=== PATIENT | female | born 1940 | race Caucasian/White ===

== ENCOUNTER 2020-03-23 13:26 | Outpatient (CLI) | payer OTHER, MEDICARE, SELFPAY ==
--- NOTE | 2020-03-23 13:51 | XR_ITS ---
WS: [id number] XR ankle RT 2V [id number] REASON FOR EXAM: RIGHT ANKLE PAIN FINDINGS: Spiral three-part fracture of the distal fibula at the level of the syndesmosis between the fibula an d tibia. There is no significant displacement of fracture fragments and no significant angulation see n on the lateral. The ankle mortise is preserved. No other significant abnormalities are identified. XR/XR ankle RT 2V 80112 IMPRESSION: Fracture of the distal right fibula as above.
== END 2020-03-23 13:27 | disposition home or self-care (01) ==
LOC: RAD 13:49
PROVIDERS: PCP Family Medicine; Visit Provider Family Medicine
DX: S82.831A Other fracture of upper and lower end of right fibula, initial encounter for closed fracture (principal); X58.XXXA Exposure to other specified factors, initial encounter
CPT/HCPCS: 73600

== ENCOUNTER → 2021-10-28 16:47 | Outpatient (BNVA) | payer OTHER, MEDICARE, SELFPAY | PROVIDERS: Visit Provider Clinical Nurse Specialist Adult Health | DX: E06.3 Autoimmune thyroiditis (principal) | CPT/HCPCS: 84443 ==

== ENCOUNTER → 2021-11-11 16:31 | Outpatient (BNVA) | payer OTHER, MEDICARE, SELFPAY | PROVIDERS: Visit Provider Clinical Nurse Specialist Adult Health | DX: E06.3 Autoimmune thyroiditis (principal) | CPT/HCPCS: 84439; 84480; 84481 ==

== ENCOUNTER → 2022-02-24 09:49 | Outpatient (BNVA) | payer OTHER, MEDICARE, SELFPAY | PROVIDERS: PCP Family Medicine; Visit Provider Family Medicine | DX: E03.9 Hypothyroidism, unspecified (principal); L50.9 Urticaria, unspecified | CPT/HCPCS: 80053; 84439; 84443; 84481; 85025; 86140 ==

== ENCOUNTER → 2022-06-27 14:48 | Outpatient (BNVA) | payer OTHER, MEDICARE, SELFPAY | PROVIDERS: PCP Family Medicine; Visit Provider Family Medicine | DX: Z51.81 Encounter for therapeutic drug level monitoring (principal); Z79.01 Long term (current) use of anticoagulants | CPT/HCPCS: 80048; 80076; 85025 ==

== ENCOUNTER → 2022-08-04 16:05 | Outpatient (BNVA) | payer OTHER, MEDICARE, SELFPAY | PROVIDERS: PCP Family Medicine; Visit Provider Family Medicine | DX: Z51.81 Encounter for therapeutic drug level monitoring (principal); E03.9 Hypothyroidism, unspecified | CPT/HCPCS: 80048; 80076; 80158; 85025 ==

== ENCOUNTER → 2022-09-06 15:56 | Outpatient (BNVA) | payer OTHER, MEDICARE, SELFPAY | PROVIDERS: PCP Family Medicine; Visit Provider Family Medicine | DX: E03.9 Hypothyroidism, unspecified (principal); Z51.81 Encounter for therapeutic drug level monitoring; Z79.899 Other long term (current) drug therapy | CPT/HCPCS: 80048; 80076; 80158; 84439; 84443; 84481; 85018; 85025 ==

== ENCOUNTER → 2022-10-04 15:49 | Outpatient (BNVA) | payer OTHER, MEDICARE, SELFPAY | PROVIDERS: PCP Family Medicine; Visit Provider Family Medicine | DX: Z91.018 Allergy to other foods (principal); E03.9 Hypothyroidism, unspecified | CPT/HCPCS: 80048; 80076; 80158; 85025; 86003; 86008 ==

== ENCOUNTER → 2022-11-08 15:45 | Outpatient (BNVA) | payer OTHER, MEDICARE, SELFPAY | PROVIDERS: PCP Family Medicine; Visit Provider Family Medicine | DX: Z51.81 Encounter for therapeutic drug level monitoring (principal) | CPT/HCPCS: 80158 ==

== ENCOUNTER → 2023-01-05 15:19 | Outpatient (BNVA) | payer OTHER, MEDICARE, SELFPAY | PROVIDERS: PCP Family Medicine; Visit Provider Family Medicine | DX: Z91.018 Allergy to other foods (principal) | CPT/HCPCS: 86003 ==

== ENCOUNTER 2023-03-16 13:30 | Outpatient (CLI) | payer OTHER, MEDICARE, SELFPAY ==
--- NOTE | 2023-03-16 13:45 | USCV_ITS ---
Tamera Valdovinos Age: 82 Gender: F : 1940 Exam Date: 03/16/2023 13:53 Ordering Phys: Naresh Gallego MD Technologist: BHAVANA Exam Location: [facility] [place] Indication: cva BP: / HR: 79 Rhythm: Sinus Technical Quality: Good MEASUREMENTS (Male / Female) Normal Values 2D ECHO LV Diastolic Diameter PLAX 4.2 cm 4.2 - 5.9 / 3.9 - 5.3 cm LV Systolic Diameter PLAX 2.9 cm IVS Diastolic Thickness 1.1 cm 0.6 - 1.0 / 0.6 - 0.9 cm IVS Systolic Thickness 1.0 cm LVPW Diastolic Thickness 0.9 cm 0.6 - 1.0 / 0.6 - 0.9 cm LVPW Systolic Thickness 1.4 cm LVOT Diameter 2.0 cm LV Ejection Fraction 2D Teich 59.2 % LV Ejection Fraction MOD 2C 48.7 % LV Ejection Fraction 2C AL 50.3 % LA Diameter 3.3 cm LA Width 2.8 cm LA Height 5.2 cm RA Width 2.7 cm RA Height 4.7 cm Aorta at Sinotubular Diameter 2.7 cm IVC Diameter 1.6 cm M-MODE Aortic Annulus Diameter 2.2 cm LA Ao Ratio MM 1.5 MV E Point Septal Separation 0.7 cm DOPPLER AV Peak Velocity 97.0 cm/s LVOT Peak Velocity 99.0 cm/s AV Area Cont Eq vti 2.9 cm squared AV Area Cont Eq pk 3.3 cm squared MV Peak Velocity 104.0 cm/s MV Area PHT 3.7 cm squared Mitral E to A Ratio 1.2 MV E' Velocity 49.5 cm/s Mitral E to MV E' Ratio 10.6 Mitral E to LV E' Lateral Ratio 13.2 Mitral E to LV E' Septal Ratio 8.9 TR Peak Velocity 249.5 cm/s TR Peak Gradient 24.9 mmHg Right Atrial Pressure 5.0 mmHg Pulmonary Artery Systolic Pressu 29.9 mmHg PV Peak Velocity 82.0 cm/s RV Acceleration Time 0.2 s RV Ejection Time 0.4 s RV AcT/ET 0.5 FINDINGS Left Ventricle Normal left ventricular size, systolic function and wall thickness, with no regional wall motion abnormalities. Left ventricular ejection fraction is estimated at 60 %. Grade I/IV diastolic dysfunction (abnormal relaxation filling pattern), normal to mildly elevated filling pressures. Right Ventricle Normal right ventricular size and systolic function. Normal right ventricular systolic pressure. Right Atrium The right atrium is normal in size. Left Atrium The left atrium is normal in size. Mitral Valve Structurally normal mitral valve. Trace mitral valve regurgitation. Aortic Valve Structurally normal trileaflet aortic valve. No aortic valve stenosis. Mild aortic valve regurgitation. Tricuspid Valve Structurally normal tricuspid valve. Mild tricuspid valve regurgitation. Pulmonic Valve Pulmonic valve not well visualized. Mild pulmonary valve regurgitation. Pericardium Normal pericardium without effusion. Aorta Normal ascending aorta dimension. IVC The inferior vena cava appears normal. CONCLUSIONS Normal left ventricular size, systolic function and wall thickness, with no regional wall motion abnormalities. Left ventricular ejection fraction is estimated at 60 %. Grade I/IV diastolic dysfunction (abnormal relaxation filling pattern), normal to mildly elevated filling pressures. Structurally normal mitral valve. Trace mitral valve regurgitation. Structurally normal trileaflet aortic valve. No aortic valve stenosis. Mild aortic valve regurgitation. There are no prior echocardiogram studies to compare. Dr. Osman Cook MD (Electronically Signed) Final Date: 16 March 2023 15:46 S
--- NOTE | 2023-03-16 14:30 | USCV_ITS ---
Tamera Valdovinos Age: 82 Gender: F : 1940 Exam Date: 03/16/2023 14:19 Ordering Phys: Naresh Gallego MD Technologist: LETICIA Exam Location: [facility] [place] Indication: CVA Risk Factors: Previous Vascular Surgery: Right Brachial BP: / Left Brachial BP: / Right Left Velocity (cm/s) Spectral Plaque Velocity (cm/s) Spectral Plaque Syst/Diast Broadening Syst/Diast Broadening 104.50/12.80 Prox CCA 72.90 / 13.70 205.10/37.80 Mid CCA 70.70 / 14.00 56.80/ 13.20 Distal CCA 69.10 / 12.40 51.80/ 14.40 Prox ICA 49.30 / 13.10 71.50/ 16.00 Mid ICA 114.50/ 32.10 74.10/ 19.70 Distal ICA 152.30/ 38.70 60.30 ECA 57.40 0.36 ICA/CCA 2.09 Antegrade Vertebral Antegrade 43.80/ 8.00 cm/s 71.50/ 16.50 cm/s Tri Subclavian Tri 87.80 103.5 0 CONCLUSIONS Right ICA stenosis <50%. Mild atheromatous plaque right carotid bulb/ICA. Left ICA stenosis <50%. Mild atheromatous plaque left carotid bulb/ICA. Intimal thickening in the common carotid arteries and internal carotid arteries bilaterally. Normal antegrade Doppler flow noted in the right vertebral artery. Normal antegrade Doppler flow noted in the left vertebral artery. Mode Thompson MD (Electronically Signed) Final Date: 16 March 2023 16:15 S
--- NOTE | 2023-03-16 15:30 | CT_ITS ---
WS: [id number] CT HEAD TECHNIQUE: Noncontrast CT of the head obtained from the skullbase to the vertex. CLINICAL INFORMATION: cva COMPARISON: None. DLP: 1053.[address] scans at [facility] use at least one of these dose optimization techniques: automated e xposure control; mA and/or kV adjustment per patient size (includes targeted exams where dose is matc hed to clinical indication); or iterative reconstruction. FINDINGS: No evidence of intracranial hemorrhage or mass effect. Ventricular system and basal cisterns are muro nt. Moderate small vessel changes with moderate parenchymal volume loss. No extra-axial fluid collect ions. No evidence of mass or mass effect. Chronic infarcts with encephalomalacia involving the LEFT p arasagittal frontal lobe, LEFT frontal parietal junction, LEFT superior temporal lobe, RIGHT frontal lobe laterally, and RIGHT frontoparietal junction. Tiny chronic lacunar infarct involving the RIGHT c audate. Intracranial vascular calcification. Mastoid air cells are well aerated. Mild mucosal thickening in the ethmoid air cells. Small amount of fluid in the sphenoid sinuses with small calcified osteoma measuring 5 mm. IMPRESSION: 1. No evidence of intracranial hemorrhage or mass effect. 2. Multiple chronic cortical infarcts with encephalomalacia described above involving multiple vascu lar territories some in a watershed distribution. Consider watershed and embolic etiologies. 3. Intracranial vascular calcification. 4. Trace sphenoid sinusitis. Mastoid air cells are well aerated.
== END 2023-03-16 13:31 | disposition home or self-care (01) ==
LOC: RAD 13:30
PROVIDERS: PCP Family Medicine; Visit Provider Family Medicine
DX: Z86.73 Personal history of transient ischemic attack (TIA), and cerebral infarction without residual deficits (principal); R07.9 Chest pain, unspecified; G93.89 Other specified disorders of brain; I65.23 Occlusion and stenosis of bilateral carotid arteries; I51.89 Other ill-defined heart diseases; I34.0 Nonrheumatic mitral (valve) insufficiency; I35.0 Nonrheumatic aortic (valve) stenosis
CPT/HCPCS: 70450; 93306; 93880; Q9967

== ENCOUNTER 2023-08-16 14:17 | Emergency (ER) | payer OTHER, MEDICARE, SELFPAY ==
[2023-08-16 14:23] VITALS: BP 195/81; PULSE 58; TEMP 36.8; O2SAT 99
--- NOTE | 2023-08-16 14:23 | XR_ITS ---
WS: [id number] Exam: XR chest 1V portable [id number] Date/Time of Exam: 08/16/2023 2:23 PM Reason For Exam: cva No priors. Lungs are clear and fully inflated. Cardiomediastinal silhouette is unremarkable. No pleural effusion s. Bony structures are intact. Dextroscoliosis noted at the thoracolumbar junction. IMPRESSION: 1. No acute cardiopulmonary finding.
--- NOTE | 2023-08-16 14:23 | CT_ITS ---
WS: [id number] CTA HEAD AND NECK TECHNIQUE: Contrast enhanced CTA of the head and neck with coronal and sagittal reformatted images an d maximum intensity projection (MIP) images. NASCET criteria utilized. CLINICAL INFORMATION: cva DLP: 403.[address] scans at [facility] use at least one of these dose optimization techniques: automated e xposure control; mA and/or kV adjustment per patient size (includes targeted exams where dose is matc hed to clinical indication); or iterative reconstruction. FINDINGS: Acute appearing occlusion of the distal RIGHT MCA at the trifurcation involving the posterior divisio n branch. Anterior division remains patent. Decreased vascularity to the RIGHT posterior MCA territor y involving the RIGHT temporal lobe and insula. Decreased vascularity involving the posterior tempora l and parietal junction. RIGHT: RIGHT common carotid artery is patent. Mild atheromatous plaque RIGHT carotid bulb. No signifi cant RIGHT ICA stenosis. RIGHT ICA is patent to the skull base. . LEFT: LEFT common carotid artery is patent. No significant LEFT ICA stenosis. LEFT ICA is patent to t he skull base. 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 Absent RIGHT A1 segment. Normal vascularity to the ENOC and LEFT MCA elisa tory. LEFT dominant vertebral artery. Smaller but patent RIGHT vertebral artery ends in PICA. Basilar arter y is patent. Normal vascularity to the OVERLOCK SLEEVE SETTER territory bilaterally IMPRESSION: 1. Acute appearing occlusion posterior division of the RIGHT MCA corresponds to the increased attenu ation seen on the head CT. 2. Associated decreased vascularity to the RIGHT OVERLOCK SLEEVE SETTER territory described above. 3. No significant ICA stenosis bilaterally. 4. LEFT dominant vertebral artery. 5. 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 Basilar artery is patent. 6. Chronic cortical infarcts unchanged compared to previous Notified Cyndi Paz MD at 08/16/2023 3:10 PM.
--- NOTE | 2023-08-16 14:23 | CT_ITS ---
WS: [id number] CT HEAD TECHNIQUE: Noncontrast CT of the head obtained from the skullbase to the vertex. CLINICAL INFORMATION: Symptoms of acute stroke COMPARISON: CT 03/16/2023 DLP: [address] scans at [facility] use at least one of these dose optimization techniques: automated e xposure control; mA and/or kV adjustment per patient size (includes targeted exams where dose is matc hed to clinical indication); or iterative reconstruction. FINDINGS: No evidence of intracranial hemorrhage or mass effect. Increased density in the RIGHT distal MCA AND MCA trifurcation may be due to vascular calcification or thrombus. CTA is pending. Ventricular system and basal cisterns are patent. Moderate small vessel changes with moderate parench ymal volume loss. Chronic cortical infarcts involving the parasagittal LEFT frontal lobe, LEFT inferi or frontal lobe, LEFT temporal lobe and temporoparietal junction, and RIGHT temporoparietal junction. Intracranial vascular calcification. Mastoid air cells are well aerated. Small amount of fluid sphen oid sinus. IMPRESSION: 1. No evidence of intracranial hemorrhage or mass effect. 2. Increased density in the RIGHT distal MCA MCA trifurcation may be due to vascular calcification o r thrombus. CTA is pending. 3. Multiple chronic cortical infarcts unchanged described above. Notified Cyndi Paz MD at 08/16/2023 2:42 PM.
--- NOTE | 2023-08-16 14:28 | ED_ITS ---
HPI - Neuro Symptoms/Deficit 2 General: Chief Complaint: Altered Mental Status Stated Complaint: fall, head lac Time Seen by Provider: 08/16/23 14:19 Source: family Mode of arrival: ambulatory Limitations: altered mental status History of Present Illness: 82-year-old female states that f rajni in the garage hit her head on the floor does have a laceration to left side of her head he states that since she had fell in her head she has been altered. Patient here is gaze to the right we will not follow any commands he states he has been she has been like this over the last hour since her fall states that she is acting normal prior to that she does have a history of a stroke in the past. Review of Systems 2 General: Reports: ROS unobtainable due to mental status PFSH ED 2 PFSH: Medical History CVA (cerebral vascular accident) Chronic back pain Hypertension Urticaria Hypothyroid NIH stroke score 2 NIHSS: Level Of Consciousness - 1a: 1 Level Of Consciousness Questions - 1b: One Correct Level Of Consciousness Commands - 1c: One Correct Best Gaze - 2: Forced Deviation Visual Ann - 3: No Visual Loss Facial Palsy - 4: Normal Motor Arm Right - 5: Effort Against [place] Motor Arm Left - 5: No Drift Motor Leg Right - 6: Effort Against [place] Motor Leg Left - 6: No Drift Limb Ataxia - 7: Absent Sensory - 8: Normal Best Language - 9: Mild/Moderate Aphasia Dysarthia - 10: Mild/Moderate Dysarthia E xtinction And Inattention - 11: 1 Score: Total Score: 12 Physical Exam 2 Const: COMMON NORMALS: negative for patient oriented x3 EXAM LIMITATIONS: a ltered mental status HENMT: COMMON NORMALS: normocephalic HEAD & SCALP: normocephalic OTHER: contusion left forehead with a 2cm laceration Eye: OTHER: She has a deviation to her eyes looking to the right Neck/C-Spine: COMMON NORMALS: full ROM and supple Chest: COMMONS NORMALS: normal inspection of the chest and normal palpation of entire chest wall Resp: COMMON NORMALS: normal respiratory effort, No retractions, No use of accessory muscles and clear to auscultation bilaterally AUSCULTATION: clear to auscultation bilaterally Cardio: COMMON NORMALS: regular rate, regular rhythm and No murmurs present (Cardio) RATE: regular rate RHYTHM: regular rhythm GI: COMMON NORMALS: Normal to inspection, nondistended, normoactive bowel sounds present, Soft to palpation, non-tender and no masses PALPATION: Yes Soft to palpation Extremity: COMMON NORMALS: normal to inspection and full ROM Neuro: COMMON NORMALS: negative for patient oriented x3 and negative for moves all extremities Psych: COMMON NORMALS: negative for mental status grossly normal Skin: COMMON NORMALS: no rashes or lesions noted and no wounds GENERAL SKIN EXAM: no rashes or lesions noted Procedures Laceration Laceration 1: Site: other (left forehead) Side (If applicable): left Size (cm): 2 Description: linear and clean Depth: simple, single layer Pre-repair: irrigated extensively Skin layer closed with: other (dermabond) Course 2 Vital Signs: Vital signs: Vital Signs Temperature 98.3 F 08/16/23 14:23 Pulse Rate 58 L 08/16/23 14:23 Blood Pressure 195/81 08/16/23 14:23 Pulse Oximetry 99 08/16/23 14:23 Oxygen Delivery Me thod Room Air 08/16/23 14:23 MDM - Neuro Symptoms/Deficit Medical Decision Making Patient presents here after a stroke she did hit her head as well her last known normal was 1300. Head CT showed no bleed CTA did show a thrombus. I did consult with our neurologist Dr. Cintron who agreed with me patient is not a lytic candidate due to the head trauma she is got a large contusion along with laceration I did repair the laceration here with Dermabond. I spoke to [facility] neurology will transfer there for higher level care for possible thrombectomy Medical Records I reviewed the patient's medical records. Lab Data I reviewed the patient's lab results. 08/16/23 14:30 08/16/23 14:30 Laboratory Results WBC 3.33 10^3/uL (3.29-11.43) 08/16/23 14:30 RBC 4.05 10^6/uL (3.85-5.65) 08/16/23 14:30 Hgb 10.90 g/dL (11.27-16.99) L 08/16/23 14:30 Hct 34.6 % (36-47) L 08/16/23 14:30 MCV 85.4 fl (85-98) 08/16/23 14:30 MCH 26.9 pg (27-33) L 08/16/23 14:30 MCHC 31.5 g/dL (30-55) 08/16/23 14:30 RDW 14.2 % (12.1-15.1) 08/16/23 14:30 Plt Count 164 10^3/cmm (157-399) 08/16/23 14:30 MPV 10.8 fL (7.4-10.4) H 08/16/23 14:30 Neut % (Auto) 65.2 % 08/16/23 14:30 Lymph % (Auto) 24.3 % 08/16/23 14:30 [place] % (Auto) 8.4 % 08/16/23 14:30 Eos % (Auto) 1.2 % 08/16/23 14:30 Baso % (Auto) 0.0 % 08/16/23 14:30 Neut # (Auto) 2.17 10^3/uL (1.8-7.7) 08/16/23 14:30 Lymph # (Auto) 0.8 10^3/uL (0.8-4.8) 08/16/23 14:30 [place] # (Auto) 0.3 10^3/uL (0.2-0.9) 08/16/23 14:30 Eos # (Auto) 0.0 10^3/uL (0.0-0.8) 08/16/23 14:30 Baso # (Auto) 0.0 10^3/uL (0.0-0.1) 08/16/23 14:30 Nucleated RBC % (auto) 0 % 08/16/23 14:30 Nucleated RBCs # 0.0 /100WBC 08/16/23 14:30 PT 14.50 SECONDS (12.1-14.9) 08/16/23 14:30 INR 1.10 (0.8-1.2) 08/16/23 14:30 APTT 25.7 SECONDS (23.9-36.7) 08/16/23 14:30 Sodium 140 mmol/L (136-145) 08/16/23 14:30 Potassium 4.0 mmol/L (3.5-5.1) 08/16/23 14:30 Chloride 107 mmol/L (98-107) 08/16/23 14:30 Carbon Dioxide 23 mmol/L (22-29) 08/16/23 14:30 Anion Gap 14.0 (5-19) 08/16/23 14:30 BUN 12 mg/dL (8-23) 08/16/23 14:30 Creatinine 0.7 mg/dL (0.5-0.9) 08/16/23 14:30 GFR Calculation Not Reportable 08/16/23 14:30 Glucose 101 mg/dL (65-115) 08/16/23 14:30 POC Glucose 106 mg/dL (70-110) 08/16/23 14:47 Calculated Osmolality 290 mOsm/kg (285-295) 08/16/23 14:30 Calcium 8.7 mg/dL (8.5-10.5) 08/16/23 14:30 Total Bilirubin 0.2 mg/dL (0.15-1.2) 08/16/23 14:30 AST 22 U/L (0-32) 08/16/23 14:30 ALT 10 U/L (0-33) 08/16/23 14:30 Alkaline Phosphatase 82 U/L (35-105) 08/16/23 14:30 Total Protein 6.5 g/dL (6.6-8.7) L 08/16/23 14:30 Albumin 3.8 g/dL (3.5-5.2) 08/16/23 14:30 Globulin 2.7 g/dL (1.3-4.6) 08/16/23 14:30 All radiology interpretation(s) finalized by discharge EKG Data EKG 1: I personally reviewed and interpreted this EKG as follows: EKG interpretation date: 08/16/23 EKG interpretation time: 14:54 Interpretation: nsr hr [address] or t wave abnormalities qrs 89 qtc 419 Discharge Plan Discharge Patient Disposition: Xfer Short-Term Hosp Clinical Impression: CVA (cerebral vascular accident) Condition: Stable Prescriptions: No Action atenolol 25 mg tablet 25 mg PO DAILY Qty: 30 11RF epinephrine [EpiPen 2-Pb] 0.3 mg/0.3 mL auto-injector 0.3 mg IM Q4H PRN (Reason: anaphylaxis) Qty: 2 1RF Xolair 150 mg/mL syringe 300 mg SUBCUT .EVERY 4 WEEKS levothyroxine 75 mcg tablet 75 mcg PO DAILY Vitamin D3 25 mcg (1,000 unit) Capsule 25 mcg PO DAILY Adult Aspirin Regimen 81 mg tablet,delayed release (DR/EC) 162 mg PO DAILY Referrals: Naresh Gallego MD [Primary Care Provider] - Patient Instructions: Altered Mental Status (ED) Coding Level of Care Code ED Business English Instructor for Cornel Wei
--- NOTE | 2023-08-16 14:29 | CT_ITS ---
WS: [id number] CT CERVICAL TRAUMA TECHNIQUE: Noncontrast CT of the cervical spine with coronal and sagittal reformatted images. CLINICAL INFORMATION: fall COMPARISON: None. DLP: 159.[address] scans at [facility] use at least one of these dose optimization techniques: automated e xposure control; mA and/or kV adjustment per patient size (includes targeted exams where dose is matc hed to clinical indication); or iterative reconstruction. FINDINGS: Straightening of the normal cervical lordosis. Slight anterolisthesis C2 on C3 and C3 on C4. Disc mac rowing worse at C4-C5 C5-C6 and C6-C7. Normal craniocervical junction. Normal C1-C2 articulation. Den s is normal in appearance. Normal occipital condyles. No high-grade spinal canal narrowing. Normal C1 ring. No evidence of acute fracture or dislocation. Normal prevertebral soft tissues. Mastoids air cells are well aerated. IMPRESSION: No evidence of acute fracture or dislocation.
--- NOTE | 2023-08-16 14:32 | PC.PHAR ---
medications entered are from what mary states they have filled for the pt recently and what the pts states he knows she takes along with otc meds-mary filled -xolair 300mg every 4 weeks filled 07/24/23 28d/s-levothyroxine 75mcg po daily filled 06/30/23 90d/s-atenolol 25mg po daily filled 06/12/23 90d/s-epipen filled 01/27/23
[2023-08-16 14:37] LABS: Eosinophils % 1.2 %; Hematocrit 34.6 % (36-47); Lymphocytes # 0.8 10^3/uL (0.8-4.8); Lymphocytes % 24.3 %; Mean Corpuscular HGB Conc 31.5 g/dL (30-55); Mean Corpuscular Hemoglobin 26.9 pg (27-33); Mean Corpuscular Volume 85.4 fl (85-98); Mean Platelet Volume 10.8 fL (7.4-10.4); Monocytes # 0.3 10^3/uL (0.2-0.9); Monocytes % 8.4 %; Neutrophils # 2.17 10^3/uL (1.8-7.7); Neutrophils % 65.2 %; Nucleated Red Blood Cells % 0 %; Platelet Count 164 10^3/cmm (157-399); Red Blood Count 4.05 10^6/uL (3.85-5.65); Red Cell Distribution Width 14.2 % (12.1-15.1); White Blood Count 3.33 10^3/uL (3.29-11.43)
[2023-08-16 14:49] LABS: Partial Thromboplastin Time 25.7 SECONDS (23.9-36.7)
[2023-08-16 14:51] LABS: Glucose Point of Care 106 mg/dL (70-110)
[2023-08-16 14:54] LABS: Alanine Aminotransferase 10 U/L (0-33); Albumin Level 3.8 g/dL (3.5-5.2); Alkaline Phosphatase 82 U/L (35-105); Aspartate Amino Transferase 22 U/L (0-32); Blood Urea Nitrogen 12 mg/dL (8-23); Calcium 8.7 mg/dL (8.5-10.5); Carbon Dioxide 23 mmol/L (22-29); Chloride 107 mmol/L (98-107); Creatinine Clr Calc Pharmacy 43.9038; Globulin 2.7 g/dL (1.3-4.6); Glucose 101 mg/dL (65-115); Osmolality Calculated 290 mOsm/kg (285-295); Sodium 140 mmol/L (136-145); Total Bilirubin 0.2 mg/dL (0.15-1.2); Total Protein 6.5 g/dL (6.6-8.7)
[2023-08-16] MEDS: iohexol 350 mg/mL 500 mL Btl (per mL) IV (14:54)
--- NOTE | 2023-08-16 14:54 | ECG_ITS ---
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 Measurements Intervals [place] Rate: 60 P: 97 WV: 159 QRS: 59 QRSD: 89 T: 22 QT: 419 QTc: 419 Interpretive Statements SINUS RHYTHM NONSPECIFIC T-WAVE ABNORMALITY No previous ECG available for comparison Electronically Signed On 08-16-2023 15:28:30 CDT by Osman Cook M.D. [email or web address]
--- NOTE | 2023-08-16 15:09 | P.CONIM_ITS ---
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 The patient also has a history of hypertension and hypothyroidism. On 08/16/2023 the patient was in her garage moving items to get ready for a garage sale in [place]. The patient was helping her but was temporarily alone and was reported to tripped in the garage with closed head trauma with scalp laceration in the left forehead region with bleeding. The stated that this occurred around 1 PM on 08/16/2023. The stated that when he returned to the garage the patient was facedown with decreased level consciousness and there was a pool of blood around his 's head. As a result the patient was brought to [facility] emergency department for evaluation. Noncontrast head CT was obtained and revealed Increased density in the RIGHT distal MCA MCA trifurcation may be due to vascular calcification or thrombus. CTA is pending. Multiple chronic cortical infarcts unchanged described above. NIH score = 12 performed by the attending emergency room physician. Neurological evaluation was performed after patient was brought back from the CT angiogram and chest x-ray. NIH score = 9 (secondary to right gaze preference with inability to look to the left, left lower facial weakness, left upper extremity weakness and severe left lower extremity weakness, decreased coordination in the left arm and left leg and neglect involving the left side of the body). In view of the patient's history of closed head trauma with decreased level consciousness with left forehead laceration with bleeding, the patient was not a candidate for thrombolytics and no thrombolytics were administered. Drug allergies: Alpha- Gal which resulted in difficulty breathing Valium which resulted in difficulty breathing Penicillin which resulted in hives Contrast dye which resulted in agitation Current home medications: Aspirin 160 mg p.o. daily Atenolol 25 mg p.o. daily Vitamin D3 25 mcg p.o. daily Synthroid 75 mcg p.o. 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 Hypothyroidism Hypertension Habits: None Family history: Remarkable for a mother who experienced a stroke Occupation: Patient is employed at [employer] Review of Systems 2 General: Reports: 10 or more systems reviewed and unremarkable except in HPI and below Medications/Allergies Home Medications Medication Instructions Recorded Confirmed Last Taken Type epinephrine 0.3 mg/0.3 mL 0.3 mg (0.3 mL) IM Q4H PRN 01/27/23 08/16/23 Unknown Rx injection, auto-injector (EpiPen anaphylaxis #2 ea 2-Pb) atenolol 25 mg tablet 25 mg PO DAILY #30 tabs 03/29/23 08/16/23 Unknown Rx aspirin 81 mg tablet,delayed 162 mg PO DAILY 08/16/23 08/16/23 Unknown History release (Adult Aspirin Regimen) cholecalciferol (vitamin D3) 25 25 mcg PO DAILY 08/16/23 08/16/23 Unknown History mcg (1,000 unit) capsule (Vitamin D3) levothyroxine 75 mcg tablet 75 mcg PO DAILY 08/16/23 08/16/23 Unknown History omalizumab 150 mg/mL subcutaneous 300 mg SUBCUT .EVERY 4 WEEKS 08/16/23 08/16/23 Unknown History syringe (Xolair) Allergies Allergy/AdvReac Type Severity Reaction Status Date / Time Alpha-Gal Allergy Intermediate ALGY-Difficulty Verified 08/16/23 14:35 ([id number]-1,3-Gala Breathing diazepam [From Valium] Allergy Intermediate ALGY-Difficulty Verified 08/16/23 14:35 Breathing Penicillins Allergy Intermediate ALGY-Hives Verified 08/16/23 14:35 contrast dye Allergy Intermediate ADR-Agitate Uncoded 08/16/23 14:35 d Current Medications Generic Name Dose Route Start Last Admin Trade Name Freq PRN Reason Stop Dose Admin Iohexol 0 ml 08/16/23 14:53 08/16/23 14:54 Iohexol 350 Mg/Ml 500 Ml Btl (Per Ml) IV 08/16/23 14:54 100 ml ONCE ONE Administration PFSH Acute 2 PFSH: Medical History CVA (cerebral vascular accident) Chronic back pain Hypertension Urticaria Hypothyroid Vitals/I&O/Wt Last Vital Signs Temp 98.3 F 08/16/23 14:23 Pulse 58 L 08/16/23 14:23 BP 195/81 08/16/23 14:23 Pulse Ox 99 08/16/23 14:23 O2 Del Method Room Air 08/16/23 14:23 Weight last 48 hrs Weight 122 lb Physical Exam 2 Narrative: NIH score =9 (secondary to right gaze preference with inability to look past the midline to the left, left lower facial weakness, weakness in the left upper extremity with severe weakness in the left lower extremity, decreased coordination in the left arm and left leg and neglect involving the left side of the body) Blood pressure 177/80 heart rate 58 O2 saturation 100% on room air The patient is alert and oriented to person. Patient follows commands. Speech is clear. Head reveals signs of closed head trauma with swelling over the left superior orbital region with laceration and bleeding. Neck supple. Cranial nerves II through XII revealed left lower facial weakness. Patient was able to protrude her tongue. 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 Left lower extremity revealed only withdrawal to painful stimuli. Motor testing in the right arm and right leg was 5/5. Deep tendon reflex revealed plantar responses bilaterally. There was no clonus. Sensory examination was intact to pain response in all extremities. There was obvious left-sided neglect. Throat clear. Lungs clear. Heart regular rhythm with decreased rate at 58 bpm. Extremities were negative for cyanosis or edema. Data 08/16/23 14:30 08/16/23 14:30 A&P Assessment and plan (1) Acute right arterial ischemic stroke, MCA (middle cerebral artery): Impression: 1. Acute right MCA distribution stroke secondary to thrombus 08/16/2023 at 1 PM. Note: In view of the patient's history of severe closed head trauma with altered awareness, patient was not a candidate for thrombolytics and no thrombolytics were administered. 2. Abnormal CT angiogram of the head and neck 08/16/2023 secondary to acute appearing occlusion posterior division of the RIGHT MCA corresponds to the increased attenuation seen on the head CT. Associated decreased vascularity to the RIGHT [employer]ER territory described above. No significant ICA stenosis bilaterally. LEFT dominant vertebral artery. Persistent RIGHT [employer]TRY [employer]IT LE[employer]ER. Basilar artery is patent. 3. Chronic cortical infarcts unchanged compared to previous 4. History of remote left cerebral infarction 2 to 3 years ago with residual nonfluent aphasia 5. Hypertension Plan: 1. Agree with transfer to [facility] to be evaluated for right MCA distribution thrombectomy Consult Attestations 2 Medical Necessity Statement: Patient was evaluated by neurology for acute care/code stroke 08/16/2023 emergency department room #10 Coding Level of Care Code 39757 Diagnoses Acute right arterial ischemic stroke, MCA (middle cerebral artery) I63.511
[2023-08-16 15:54] LABS: Amphetamines Screen Urine Negative (Negative); Barbiturates Screen Urine Negative (Negative); Benzodiazepines Screen Urine Negative (Negative); Cocaine Screen Urine Negative (Negative); Opiate Screen Urine Negative (Negative); PCP Screen Urine Negative (Negative); THC Screen Urine Negative (Negative)
[2023-08-16 15:58] LABS: Urine Appearance SL Hazy (CLEAR); Urine Color Colorless (Yellow)
[2023-08-16 15:59] LABS: Add Urine Microscopic? YES; Bilirubin Urine Neg (Negative); Blood Urine Neg (Negative); Glucose Urine UA Norm (Normal); Ketones Urine Negative (Negative); Leukocyte Esterase Urine Negative (Negative); Nitrate Urine Positive (Negative); Protein Urine Neg (Negative); Sulfosalicylic Acid Urine Negative (Negative); Urobilinogen Urine Neg (Negative); pH Urine 8 (5-7)
[2023-08-16 16:00] LABS: Squamous Epithelial Cell Urine 0-4 /hpf (0-5)
[2023-08-16 16:01] LABS: Add Urine Culture? Yes; Bacteria Urine 3+ /hpf; RBC Urine 0-4 /hpf (0-2)
== END 2023-08-16 16:14 | disposition short-term general hospital (02) ==
PROVIDERS: Emergency Provider Emergency Medicine; PCP Family Medicine
DX: I63.9 Cerebral infarction, unspecified (principal); Z79.82 Long term (current) use of aspirin; I10 Essential (primary) hypertension
CPT/HCPCS: 36416; 51702; 70450; 70496; 70498; 71045; 72125; 80053; 80306; 81001; 82962; 85025; 85610; 85730; 87077; 87086; 87186; 93005; 99285; Q9967

== ENCOUNTER 2023-09-15 21:15 | Emergency (ER) | payer OTHER, MEDICARE, SELFPAY ==
[2023-09-15 21:20] VITALS: BP 137/68; PULSE 68; RESP 18; TEMP 36.8; O2SAT 98
--- NOTE | 2023-09-15 21:26 | XRR_ITS ---
PROCEDURE INFORMATION: Exam: XR Chest Exam date and time: 09/15/2023 9:51 PM Age: 82 years old Clinical indication: Pain; Chest pressure; Additional info: Bradycardia TECHNIQUE: Imaging protocol: Radiologic exam of the chest. Views: 1 view. COMPARISON: CR XR chest 1V portable [id number] 08/16/2023 2:46 PM FINDINGS: Lungs: The lungs are clear. No pulmonary consolidation. Pleural spaces: No pleural effusion or pneumothorax. Heart/Mediastinum: The cardiomediastinal silhouette is within normal limits. Bones/joints: No acute osseous abnormalities are seen. XR/XR chest 1V portable [id number] IMPRESSION: No acute cardiopulmonary disease.
--- NOTE | 2023-09-15 21:26 | CTR_ITS ---
PROCEDURE INFORMATION: Exam: CT Head Without Contrast Exam date and time: 09/15/2023 10:22 PM Age: 82 years old Clinical indication: Altered mental status/memory loss; Patient HX: Per family, worsening mentation since having CVA last month. ; Additional info: Stroke HX, unk baseline TECHNIQUE: Imaging protocol: Computed tomography of the head without contrast. Radiation optimization: All CT scans at this facility use at least one of these dose optimization techniques: automated exposure control; mA and/or kV adjustment per patient size (includes targeted exams where dose is matched to clinical indication); or iterative reconstruction. COMPARISON: CT angio headneck* [id number] 08/16/2023 2:43 PM RADIATION DOSE METRICS: Total DLP (mGy-cm): 1070.68 FINDINGS: Brain: There is mild cerebral atrophy. There are mild deep white matter microangiopathic ischemic changes. No acute hemorrhage is identified. No mass or mass effect is identified. Stable areas of left frontal encephalomalacia. Stable left temporal encephalomalacia. Subacute to chronic right temporoparietal infarct correlating with occlusion seen on CT angiography 08/16/2023. Cerebral ventricles: The ventricles are prominent secondary to atrophy. Paranasal sinuses: The paranasal sinuses are clear. Mastoid air cells: The mastoid air cells are clear. Bones: No acute osseous abnormalities are seen. Soft tissues: Unremarkable. CT/CT head wo con* [id number] IMPRESSION: 1. Subacute to chronic right temporoparietal infarct correlating with right MCA occlusion seen on CT angiography 08/16/2023. 2. No acute intracranial pathology. 3. Other stable senescent changes above.
--- NOTE | 2023-09-15 21:35 | ED_ITS ---
Documented by User: LISSETH Chavez 09/16/23 00:52 HPI - Abdominal Pain 2 General: Chief Complaint: Abdominal Pain Stated Complaint: ABD Pain/ Bradycardia Time Seen by Provider: 09/15/23 21:20 Source: family and EMS Mode of arrival: EMS Limitations: altered mental status History of Present Illness: Patient is an 82-year-old female who presents to the emergency department via EMS due to worsening altered mental status for the past month. Recently she was diagnosed with a stroke and discharged from the hospital a month ago, and states that patient has only steadily declined since. She only has been complaining of some abdominal pain recently, that she has indicated his constipation. Otherwise she does not provide any useful history and can only tell me her name. She is very slow to respond. Currently she is only taking atenolol and levothyroxine. No new medication changes. Patient lives at home with , who is the one who called ambulance today. EMS reported that patient was bradycardic into the 40s on the ride here, was given 0.5 of atropine that brought rate up into the 70s. Review of systems unobtainable. MD elicited complaint: other (Altered mental status) Pertinent past history: other (Stroke) Onset (ago): month(s) Pain Consistency: constant Review of Systems 2 General: Reports: ROS unobtainable due to mental status PFSH ED 2 PFSH: Medical History CVA (cerebral vascular accident) Chronic back pain Hypertension Urticaria Hypothyroid Physical Exam 2 Const: COMMON NORMALS: no acute distress, average body habitus and alert E XAM LIMITATIONS: altered mental status GENERAL APPEARANCE: well kempt O RIENTATION/CONSCIOUSNESS: Yes awake and Yes oriented to person HENMT: COMMON NORMALS: normocephalic, atraumatic, external ears normal and Normal external nose present HEAD & SCALP: normocephalic and atraumatic F CHERRI & SINUS: normal facial exam NOSE: Normal external nose present E XTERNAL EAR: Yes external ears normal OTHER: Hard of hearing Eye: COMMON NORMALS: Equal, round and reactive pupils present, EOMs intact bilaterally and conjunctivae normal CONJUNCTIVA: Yes conjunctivae normal P UPIL: Yes Equal, round and reactive pupils present OTHER: Eyes track across midline Neck/C-Spine: COMMON NORMALS: full ROM, supple and no meningeal signs Chest: COMMONS NORMALS: normal inspection of the chest and normal palpation of entire chest wall Resp: COMMON NORMALS: normal respiratory effort, No retractions, No use of accessory muscles and clear to auscultation bilaterally AUSCULTATION: clear to auscultation bilaterally Cardio: COMMON NORMALS: regular rate, regular rhythm, S1 normal heart sound present, S2 normal heart sound present, No gallops present (Cardio), No clicks present (Cardio), No murmurs present (Cardio), No rub (Cardio) and Peripheral pulses 2+ throughout RATE: regular rate RHYTHM: regular rhythm HEART SOUNDS: S1 normal heart sound present and S2 normal heart sound present P ERIPHERAL PULSES: Peripheral pulses 2+ throughout GI: COMMON NORMALS: Normal to inspection, nondistended, normoactive bowel sounds present and Soft to palpation PALPATION: Yes Soft to palpation and Yes Tenderness to palpation present (GI) (Mild diffuse) Extremity: COMMON NORMALS: normal to inspection and capillary refill normal Neuro: COMMON NORMALS: moves all extremities, no focal motor deficits and no sensory deficits noted SENSORIUM/ORIENTATION: Yes alert and Yes oriented to person MENINGEAL SIGNS: Yes no meningeal signs SPEECH: abnormal speech Details: garbled GAIT: Yes Unable to assess gait OTHER: Va Underwriter strength diminished on the left side, overall patient is slow to respond to commands. No focal motor deficits are noted however. No facial droop. Psych: APPEARANCE: Yes well kempt Skin: COMMON NORMALS: no rashes or lesions noted GENERAL SKIN EXAM: no rashes or lesions noted Course 2 Vital Signs: Vital signs: Vital Signs Temperature 98.2 F 09/15/23 21:20 Pulse Rate 59 L 09/16/23 00:08 Respiratory Rate 16 09/16/23 00:08 Blood Pressure 151/55 09/16/23 00:08 Pulse Oximetry 100 09/16/23 00:08 Oxygen Delivery Me thod Room Air 09/16/23 00:08 MDM - Abdominal Pain Medical Decision Making Patient brought in by ambulance for altered mental status for the past month. She has been increasingly altered since suffering a CVA and staying in the hospital approximately 1 month ago. called EMS due to this worsening. EMS gave her 0.5 of atropine and route due to heart rate in the 40s. Review of systems was unobtainable due to her altered mental status, and examination revealed that she was alert to self only. No discrete neurological deficits noted other than some weakness with left hand illustrator set strength. An initial CT head without contrast did not reveal any acute bleeding. Subsequent CTA also negative for any acute thrombus or stenosis. Patient had reportedly been complaining of stomach pain, abdomen CT did not reveal any acute findings but did show that she was constipated. Sodium was found to be low, patient given IV fluids and low suspicion for cerebral herniation or osmotic demyelination at this time. UA did show evidence of urinary tract infection that could likely be causing her increase in altered mental status, will treat this accordingly. This plan was discussed with patient's , who agrees and will follow-up with their primary doctor early next week. All other questions and concerns are addressed. A thorough conversation was had with in regards to reasons to return, to which she understands. This plan was discussed with supervising ED physician, Dr. Jacobs, who agrees with disposition. Lab Data I reviewed the patient's lab results. 09/15/23 21:43 09/15/23 21:43 Labs/Radiology: Radiology Impressions Chest X-Ray 09/15/23 21:26 IMPRESSION: No acute cardiopulmonary disease. Head CT 09/15/23 21:26 IMPRESSION: 1. Subacute to chronic right temporoparietal infarct correlating with right MCA occlusion seen on CT angiography 08/16/2023. 2. No acute intracranial pathology. 3. Other stable senescent changes above. Abdomen/Pelvis CT 09/15/23 22:40 IMPRESSION: 1. Negative for focal acute inflammatory process in the abdomen or pelvis. 2. Bibasilar atelectasis. 3. Right kidney cyst, negative for follow-up advised. 4. Constipation. Head/Neck CTA 09/15/23 22:40 IMPRESSION: 1. No large vessel stenosis or occlusion. 2. Interval resolution of right M2 occlusion. IMPRESSION: No stenosis or occlusion. REFERENCES: NASCET CRITERIA. The degree of stenosis in the cervical segment of the internal carotid artery is based on NASCET criteria. Normal is no stenosis. Mild is less than 50% stenosis. Moderate is 50-69% stenosis. Severe is 70% to 99% stenosis. Total occlusion is no detectable patent lumen. Laboratory Results WBC 4.63 10^3/uL (3.29-11.43) 09/15/23 21:43 RBC 4.35 10^6/uL (3.85-5.65) 09/15/23 21:43 Hgb 11.50 g/dL (11.27-16.99) 09/15/23 21:43 Hct 35.5 % (36-47) L 09/15/23 21:43 MCV 81.6 fl (85-98) L 09/15/23 21:43 MCH 26.4 pg (27-33) L 09/15/23 21:43 MCHC 32.4 g/dL (30-55) 09/15/23 21:43 RDW 14.5 % (12.1-15.1) 09/15/23 21:43 Plt Count 216 10^3/cmm (157-399) 09/15/23 21:43 MPV 10.8 fL (7.4-10.4) H 09/15/23 21:43 Neut % (Auto) 60.9 % 09/15/23 21:43 Lymph % (Auto) 25.7 % 09/15/23 21:43 [place] % (Auto) 11.9 % 09/15/23 21:43 Eos % (Auto) 0.9 % 09/15/23 21:43 Baso % (Auto) 0.2 % 09/15/23 21:43 Neut # (Auto) 2.82 10^3/uL (1.8-7.7) 09/15/23 21:43 Lymph # (Auto) 1.2 10^3/uL (0.8-4.8) 09/15/23 21:43 [place] # (Auto) 0.6 10^3/uL (0.2-0.9) 09/15/23 21:43 Eos # (Auto) 0.0 10^3/uL (0.0-0.8) 09/15/23 21:43 Baso # (Auto) 0.0 10^3/uL (0.0-0.1) 09/15/23 21:43 Nucleated RBC % (auto) 0 % 09/15/23 21:43 Nucleated RBCs # 0.0 /100WBC 09/15/23 21:43 PT 14.00 SECONDS (12.1-14.9) 09/15/23 21:43 INR 1.04 (0.8-1.2) 09/15/23 21:43 APTT 28.5 SECONDS (23.9-36.7) 09/15/23 21:43 Sodium 128 mmol/L (136-145) L 09/15/23 21:43 Potassium 3.7 mmol/L (3.5-5.1) 09/15/23 21:43 Chloride 94 mmol/L (98-107) L 09/15/23 21:43 Carbon Dioxide 20 mmol/L (22-29) L 09/15/23 21:43 Anion Gap 17.7 (5-19) 09/15/23 21:43 BUN 10 mg/dL (8-23) 09/15/23 21:43 Creatinine 0.9 mg/dL (0.5-0.9) 09/15/23 21:43 GFR Calculation Not Reportable 09/15/23 21:43 Glucose 83 mg/dL (65-115) 09/15/23 21:43 Calculated Osmolality 264 mOsm/kg (285-295) L 09/15/23 21:43 Lactic Acid 1.5 mmol/L (0.5-2.2) 09/15/23 23:39 Calcium 9.3 mg/dL (8.5-10.5) 09/15/23 21:43 Magnesium 1.8 mg/dL (1.7-2.3) 09/15/23 21:43 Total Bilirubin 0.3 mg/dL (0.15-1.2) 09/15/23 21:43 AST 33 U/L (0-32) H 09/15/23 21:43 ALT 12 U/L (0-33) 09/15/23 21:43 Alkaline Phosphatase 130 U/L (35-105) H 09/15/23 21:43 Total Protein 6.9 g/dL (6.6-8.7) 09/15/23 21:43 Albumin 3.9 g/dL (3.5-5.2) 09/15/23 21:43 Globulin 3.0 g/dL (1.3-4.6) 09/15/23 21:43 TSH 21.95 uIU/mL (0.27-4.20) H 09/15/23 21:43 Urine Color Yellow (Yellow) 09/15/23 21:43 Urine Appearance Clear (CLEAR) 09/15/23 21:43 Urine pH 6 (5-7) 09/15/23 21:43 Ur Specific [place] 1.015 (1.005-1.030) 09/15/23 21:43 Urine Protein Neg (Negative) 09/15/23 21:43 Urine Glucose (UA) Norm (Normal) 09/15/23 21:43 Urine Ketones 1+ (Negative) H 09/15/23 21:43 Urine Blood 2+ (Negative) H 09/15/23 21:43 Urine Nitrate Positive (Negative) H 09/15/23 21:43 Urine Bilirubin 1+ (Negative) H 09/15/23 21:43 Urine Urobilinogen Neg mg/dL (Negative) 09/15/23 21:43 Ur Leukocyte Esterase Trace (Negative) H 09/15/23 21:43 Urine RBC 0-4 /hpf (0-2) H 09/15/23 21:43 Urine WBC 5-10 /hpf (0-5) H 09/15/23 21:43 Ur Squamous Epith Cells 0-4 /hpf (0-5) H 09/15/23 21:43 Amorphous Sediment Trace /hpf 09/15/23 21:43 Urine Bacteria 2+ /hpf (NONE) H 09/15/23 21:43 Hyaline Casts 0-4 /lpf H 09/15/23 21:43 Urine Mucus 1+ /hpf 09/15/23 21:43 All radiology interpretation(s) finalized by discharge Discharge Plan Discharge Patient Disposition: Home Clinical Impression: History of stroke Urinary tract infection Qualifiers: Urinary tract infection type: acute cystitis Hematuria presence: without hematuria Qualified Code(s): N30.00 - Acute cystitis without hematuria Hypothyroidism Qualifiers: Hypothyroidism type: unspecified Qualified Code(s): E03.9 - Hypothyroidism, unspecified Condition: Stable Prescriptions: New cefdinir 300 mg capsule 300 mg PO BID 10 Days Qty: 20 0RF Miralax 17 gram/dose powder 4 g PO DAILY Qty: 119 0RF No Action alprazolam 0.5 mg tablet 0.5 mg PO TID atorvastatin 40 mg tablet 40 mg PO DAILY lisinopril 10 mg tablet 10 mg PO DAILY potassium bicarb-citric acid 20 mEq tablet, effervescent 20 meq PO DAILY sertraline 50 mg tablet 50 mg PO DAILY epinephrine [EpiPen 2-Pb] 0.3 mg/0.3 mL auto-injector 0.3 mg IM Q4H PRN (Reason: anaphylaxis) Qty: 2 1RF Xolair 150 mg/mL syringe 300 mg SUBCUT .EVERY 4 WEEKS levothyroxine 75 mcg tablet 75 mcg PO DAILY Vitamin D3 25 mcg (1,000 unit) Capsule 25 mcg PO DAILY Adult Aspirin Regimen 81 mg tablet,delayed release (DR/EC) 162 mg PO DAILY Discharge Orders: Discharge ED (Routine); Ordered 09/16/23 Ordered By: Mak Schafer Referrals: Naresh Gallego MD [Primary Care Provider] - Discharge Diet: Advance as tolerated Discharge Activity: Increase activity as tolerated Patient Instructions: Urinary Tract Infection in Women (ED), Urinary Tract Infection in Older Adults (ED) Activity Restrictions/Additional Instructions: Cefdinir as prescribed. Increase your fluid intake. Continue taking your medications as usual. Follow-up with primary care to discuss ED visit as well as to discuss your thyroid labs. Otherwise, return with any new or concerning symptoms you may have. Coding Level of Care Code ED Senior Portfolio Manager for [employer] Documented by User: Dong Nava DO 09/16/23 07:16 HPI - Abdominal Pain 2 General: Chief Complaint: Abdominal Pain Stated Complaint: ABD Pain/ Bradycardia Time Seen by Provider: 09/15/23 21:20 [facility], [facility] ED 2 PFSH: Medical History CVA (cerebral vascular accident) Chronic back pain Hypertension Urticaria Hypothyroid Course 2 Vital Signs: Vital signs: Vital Signs Temperature 98.2 F 09/15/23 21:20 Pulse Rate 59 L 09/16/23 00:08 Respiratory Rate 16 09/16/23 00:08 Blood Pressure 151/55 09/16/23 00:08 Pulse Oximetry 100 09/16/23 00:08 Oxygen Delivery Me thod Room Air 09/16/23 00:08 MDM - Abdominal Pain Medical Decision Making Patient brought in by ambulance for altered mental status for the past month. She has been increasingly altered since suffering a CVA and staying in the hospital approximately 1 month ago. called EMS due to this worsening. EMS gave her 0.5 of atropine and route due to heart rate in the 40s. Review of systems was unobtainable due to her altered mental status, and examination revealed that she was alert to self only. No discrete neurological deficits noted other than some weakness with left hand illustrator set strength. An initial CT head without contrast did not reveal any acute bleeding. Subsequent CTA also negative for any acute thrombus or stenosis. Patient had reportedly been complaining of stomach pain, abdomen CT did not reveal any acute findings but did show that she was constipated. Sodium was found to be low, patient given IV fluids and low suspicion for cerebral herniation or osmotic demyelination at this time. UA did show evidence of urinary tract infection that could likely be causing her increase in altered mental status, will treat this accordingly. This plan was discussed with patient's , who agrees and will follow-up with their primary doctor early next week. All other questions and concerns are addressed. A thorough conversation was had with in regards to reasons to return, to which she understands. This plan was discussed with supervising ED physician, Dr. Jacobs, who agrees with disposition. Chart reviewed Lab Data 09/15/23 21:43 09/15/23 21:43 Labs/Radiology: Radiology Impressions Chest X-Ray 09/15/23 21:26 IMPRESSION: No acute cardiopulmonary disease. Head CT 09/15/23 21:26 IMPRESSION: 1. Subacute to chronic right temporoparietal infarct correlating with right MCA occlusion seen on CT angiography 08/16/2023. 2. No acute intracranial pathology. 3. Other stable senescent changes above. Abdomen/Pelvis CT 09/15/23 22:40 IMPRESSION: 1. Negative for focal acute inflammatory process in the abdomen or pelvis. 2. Bibasilar atelectasis. 3. Right kidney cyst, negative for follow-up advised. 4. Constipation. Head/Neck CTA 09/15/23 22:40 IMPRESSION: 1. No large vessel stenosis or occlusion. 2. Interval resolution of right M2 occlusion. IMPRESSION: No stenosis or occlusion. REFERENCES: NASCET CRITERIA. The degree of stenosis in the cervical segment of the internal carotid artery is based on NASCET criteria. Normal is no stenosis. Mild is less than 50% stenosis. Moderate is 50-69% stenosis. Severe is 70% to 99% stenosis. Total occlusion is no detectable patent lumen. Laboratory Results WBC 4.63 10^3/uL (3.29-11.43) 09/15/23 21:43 RBC 4.35 10^6/uL (3.85-5.65) 09/15/23 21:43 Hgb 11.50 g/dL (11.27-16.99) 09/15/23 21:43 Hct 35.5 % (36-47) L 09/15/23 21:43 MCV 81.6 fl (85-98) L 09/15/23 21:43 MCH 26.4 pg (27-33) L 09/15/23 21:43 MCHC 32.4 g/dL (30-55) 09/15/23 21:43 RDW 14.5 % (12.1-15.1) 09/15/23 21:43 Plt Count 216 10^3/cmm (157-399) 09/15/23 21:43 MPV 10.8 fL (7.4-10.4) H 09/15/23 21:43 Neut % (Auto) 60.9 % 09/15/23 21:43 Lymph % (Auto) 25.7 % 09/15/23 21:43 [place] % (Auto) 11.9 % 09/15/23 21:43 Eos % (Auto) 0.9 % 09/15/23 21:43 Baso % (Auto) 0.2 % 09/15/23 21:43 Neut # (Auto) 2.82 10^3/uL (1.8-7.7) 09/15/23 21:43 Lymph # (Auto) 1.2 10^3/uL (0.8-4.8) 09/15/23 21:43 [place] # (Auto) 0.6 10^3/uL (0.2-0.9) 09/15/23 21:43 Eos # (Auto) 0.0 10^3/uL (0.0-0.8) 09/15/23 21:43 Baso # (Auto) 0.0 10^3/uL (0.0-0.1) 09/15/23 21:43 Nucleated RBC % (auto) 0 % 09/15/23 21:43 Nucleated RBCs # 0.0 /100WBC 09/15/23 21:43 PT 14.00 SECONDS (12.1-14.9) 09/15/23 21:43 INR 1.04 (0.8-1.2) 09/15/23 21:43 APTT 28.5 SECONDS (23.9-36.7) 09/15/23 21:43 Sodium 128 mmol/L (136-145) L 09/15/23 21:43 Potassium 3.7 mmol/L (3.5-5.1) 09/15/23 21:43 Chloride 94 mmol/L (98-107) L 09/15/23 21:43 Carbon Dioxide 20 mmol/L (22-29) L 09/15/23 21:43 Anion Gap 17.7 (5-19) 09/15/23 21:43 BUN 10 mg/dL (8-23) 09/15/23 21:43 Creatinine 0.9 mg/dL (0.5-0.9) 09/15/23 21:43 GFR Calculation Not Reportable 09/15/23 21:43 Glucose 83 mg/dL (65-115) 09/15/23 21:43 Calculated Osmolality 264 mOsm/kg (285-295) L 09/15/23 21:43 Lactic Acid 1.5 mmol/L (0.5-2.2) 09/15/23 23:39 Calcium 9.3 mg/dL (8.5-10.5) 09/15/23 21:43 Magnesium 1.8 mg/dL (1.7-2.3) 09/15/23 21:43 Total Bilirubin 0.3 mg/dL (0.15-1.2) 09/15/23 21:43 AST 33 U/L (0-32) H 09/15/23 21:43 ALT 12 U/L (0-33) 09/15/23 21:43 Alkaline Phosphatase 130 U/L (35-105) H 09/15/23 21:43 Total Protein 6.9 g/dL (6.6-8.7) 09/15/23 21:43 Albumin 3.9 g/dL (3.5-5.2) 09/15/23 21:43 Globulin 3.0 g/dL (1.3-4.6) 09/15/23 21:43 TSH 21.95 uIU/mL (0.27-4.20) H 09/15/23 21:43 Urine Color Yellow (Yellow) 09/15/23 21:43 Urine Appearance Clear (CLEAR) 09/15/23 21:43 Urine pH 6 (5-7) 09/15/23 21:43 Ur Specific [place] 1.015 (1.005-1.030) 09/15/23 21:43 Urine Protein Neg (Negative) 09/15/23 21:43 Urine Glucose (UA) Norm (Normal) 09/15/23 21:43 Urine Ketones 1+ (Negative) H 09/15/23 21:43 Urine Blood 2+ (Negative) H 09/15/23 21:43 Urine Nitrate Positive (Negative) H 09/15/23 21:43 Urine Bilirubin 1+ (Negative) H 09/15/23 21:43 Urine Urobilinogen Neg mg/dL (Negative) 09/15/23 21:43 Ur Leukocyte Esterase Trace (Negative) H 09/15/23 21:43 Urine RBC 0-4 /hpf (0-2) H 09/15/23 21:43 Urine WBC 5-10 /hpf (0-5) H 09/15/23 21:43 Ur Squamous Epith Cells 0-4 /hpf (0-5) H 09/15/23 21:43 Amorphous Sediment Trace /hpf 09/15/23 21:43 Urine Bacteria 2+ /hpf (NONE) H 09/15/23 21:43 Hyaline Casts 0-4 /lpf H 09/15/23 21:43 Urine Mucus 1+ /hpf 09/15/23 21:43 Discharge Plan Discharge Patient Disposition: Home Clinical Impression: History of stroke Urinary tract infection Qualifiers: Urinary tract infection type: acute cystitis Hematuria presence: without hematuria Qualified Code(s): N30.00 - Acute cystitis without hematuria Hypothyroidism Qualifiers: Hypothyroidism type: unspecified Qualified Code(s): E03.9 - Hypothyroidism, unspecified Condition: Stable Prescriptions: New cefdinir 300 mg capsule 300 mg PO BID 10 Days Qty: 20 0RF Miralax 17 gram/dose powder 4 g PO DAILY Qty: 119 0RF No Action alprazolam 0.5 mg tablet 0.5 mg PO TID atorvastatin 40 mg tablet 40 mg PO DAILY lisinopril 10 mg tablet 10 mg PO DAILY potassium bicarb-citric acid 20 mEq tablet, effervescent 20 meq PO DAILY sertraline 50 mg tablet 50 mg PO DAILY epinephrine [EpiPen 2-Pb] 0.3 mg/0.3 mL auto-injector 0.3 mg IM Q4H PRN (Reason: anaphylaxis) Qty: 2 1RF Xolair 150 mg/mL syringe 300 mg SUBCUT .EVERY 4 WEEKS levothyroxine 75 mcg tablet 75 mcg PO DAILY Vitamin D3 25 mcg (1,000 unit) Capsule 25 mcg PO DAILY Adult Aspirin Regimen 81 mg tablet,delayed release (DR/EC) 162 mg PO DAILY Discharge Orders: Discharge ED (Routine); Ordered 09/16/23 Ordered By: Mak Schafer Referrals: Naresh Gallego MD [Primary Care Provider] - Discharge Diet: Advance as tolerated Discharge Activity: Increase activity as tolerated Patient Instructions: Urinary Tract Infection in Women (ED), Urinary Tract Infection in Older Adults (ED) Activity Restrictions/Additional Instructions: Cefdinir as prescribed. Increase your fluid intake. Continue taking your medications as usual. Follow-up with primary care to discuss ED visit as well as to discuss your thyroid labs. Otherwise, return with any new or concerning symptoms you may have. Coding Level of Care Code ED Senior Portfolio Manager for [employer]
--- NOTE | 2023-09-15 21:37 | ECG_ITS ---
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 Measurements Intervals [place] Rate: 64 P: 94 MO: 167 QRS: 47 QRSD: 88 T: 52 QT: 449 QTc: 464 Interpretive Statements SINUS RHYTHM Compared to ECG 08/16/2023 14:54:07 T-wave abnormality no longer present Electronically Signed On 09-18-2023 12:57:27 CDT by Felice Lopez M.D. [id number]
[2023-09-15 21:51] LABS: Basophils % 0.2 %; Eosinophils % 0.9 %; Hematocrit 35.5 % (36-47); Lymphocytes # 1.2 10^3/uL (0.8-4.8); Lymphocytes % 25.7 %; Mean Corpuscular HGB Conc 32.4 g/dL (30-55); Mean Corpuscular Hemoglobin 26.4 pg (27-33); Mean Corpuscular Volume 81.6 fl (85-98); Mean Platelet Volume 10.8 fL (7.4-10.4); Monocytes # 0.6 10^3/uL (0.2-0.9); Monocytes % 11.9 %; Neutrophils # 2.82 10^3/uL (1.8-7.7); Neutrophils % 60.9 %; Nucleated Red Blood Cells % 0 %; Platelet Count 216 10^3/cmm (157-399); Red Blood Count 4.35 10^6/uL (3.85-5.65); Red Cell Distribution Width 14.5 % (12.1-15.1); White Blood Count 4.63 10^3/uL (3.29-11.43)
[2023-09-15 22:00] LABS: Add Urine Microscopic? YES; Amorphous Sediment Urine TRACE /hpf; Bacteria Urine 2+ /hpf; Bilirubin Urine 1+ (Negative); Blood Urine 2+ (Negative); Glucose Urine UA Norm (Normal); Hyaline Casts Urine 0-4 /lpf; Ketones Urine 1+ (Negative); Leukocyte Esterase Urine Trace (Negative); Mucus Urine 1+ /hpf; Nitrate Urine Positive (Negative); Protein Urine Neg (Negative); RBC Urine 0-4 /hpf (0-2); Specific Gravity, Urine 1.015 (1.005-1.030); Squamous Epithelial Cell Urine 0-4 /hpf (0-5); Urine Appearance Clear (CLEAR); Urine Color Yellow (Yellow); Urobilinogen Urine Neg (Negative); pH Urine 6 (5-7)
[2023-09-15 22:01] LABS: Add Urine Culture? Yes
[2023-09-15 22:04] LABS: INR 1.04 (0.8-1.2)
[2023-09-15 22:05] LABS: Partial Thromboplastin Time 28.5 SECONDS (23.9-36.7)
[2023-09-15 22:22] LABS: Alanine Aminotransferase 12 U/L (0-33); Albumin Level 3.9 g/dL (3.5-5.2); Alkaline Phosphatase 130 U/L (35-105); Anion Gap 17.7 (5-19); Aspartate Amino Transferase 33 U/L (0-32); Blood Urea Nitrogen 10 mg/dL (8-23); Calcium 9.3 mg/dL (8.5-10.5); Carbon Dioxide 20 mmol/L (22-29); Chloride 94 mmol/L (98-107); Creatinine Clr Calc Pharmacy 36.0411; Glucose 83 mg/dL (65-115); Magnesium 1.8 mg/dL (1.7-2.3); Osmolality Calculated 264 mOsm/kg (285-295); Potassium 3.7 mmol/L (3.5-5.1); Sodium 128 mmol/L (136-145); Thyroid Stimulating Hormone 21.95 uIU/mL (0.27-4.20); Total Bilirubin 0.3 mg/dL (0.15-1.2); Total Protein 6.9 g/dL (6.6-8.7)
[2023-09-15] MEDS: sodium chloride 0.9% 1,000 ML 999 ML IV (22:37)
[2023-09-15 22:39] VITALS: BP 139/60; PULSE 55; RESP 18; O2SAT 100
--- NOTE | 2023-09-15 22:40 | CTR_ITS ---
PROCEDURE INFORMATION: Exam: CT Abdomen And Pelvis With Contrast Exam date and time: 09/15/2023 11:01 PM Age: 82 years old Clinical indication: Abdominal pain; Generalized; Patient HX: C/O diffuse abd pain TECHNIQUE: Imaging protocol: Computed tomography of the abdomen and pelvis with contrast. Radiation optimization: All CT scans at this facility use at least one of these dose optimization techniques: automated exposure control; mA and/or kV adjustment per patient size (includes targeted exams where dose is matched to clinical indication); or iterative reconstruction. Contrast material: OMNI 350; Contrast volume: 80 ml; Contrast route: INTRAVENOUS (IV); COMPARISON: CR (CHEST, ) 09/15/2023 9:51 PM RADIATION DOSE METRICS: Total DLP (mGy-cm): 395.92 FINDINGS: Lungs: Bibasilar atelectasis. Liver: Normal. No mass. Gallbladder and bile ducts: Normal. No calcified stones. No ductal dilation. Pancreas: Normal. No ductal dilation. Spleen: Normal. No splenomegaly. Adrenal glands: Normal. No mass. Kidneys and ureters: Right kidney cyst, negative for follow-up advised. Stomach and bowel: Constipation. Appendix: No evidence of appendicitis. Intraperitoneal space: Unremarkable. No free air. No significant fluid collection. Vasculature: Unremarkable. No abdominal aortic aneurysm. Lymph nodes: Unremarkable. No enlarged lymph nodes. Urinary bladder: Unremarkable as visualized. Reproductive: Unremarkable as visualized. Bones/joints: Unremarkable. No acute fracture. Soft tissues: Unremarkable. CT/CT abdomen pelvis w con* [id number] IMPRESSION: 1. Negative for focal acute inflammatory process in the abdomen or pelvis. 2. Bibasilar atelectasis. 3. Right kidney cyst, negative for follow-up advised. 4. Constipation.
--- NOTE | 2023-09-15 22:40 | CTR_ITS ---
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 ; Additional info: AMS, w/o contrast negative TECHNIQUE: Imaging protocol: Computed tomographic angiography of the head with contrast. Exam focused on the arteries. 3D rendering (Not supervised by radiologist): MIP and/or 3D reconstructed images were created by the technologist. Radiation optimization: All CT scans at this facility use at least one of these dose optimization techniques: automated exposure control; mA and/or kV adjustment per patient size (includes targeted exams where dose is matched to clinical indication); or iterative reconstruction. Contrast material: OMNI 350; Contrast volume: 100 ml; Contrast route: INTRAVENOUS (IV); COMPARISON: 1. CT angio headneck* [id number] 08/16/2023 2:[address] head wo con* [id number] 09/15/2023 10:22 PM RADIATION DOSE METRICS: Total DLP (mGy-cm): 395.92 FINDINGS: ANTERIOR CIRCULATION: Right internal carotid artery: Intracranial segment is patent with no significant stenosis. No aneurysm. Right middle cerebral artery: No occlusion or significant stenosis. No aneurysm. Right anterior cerebral artery: No occlusion or significant stenosis. No aneurysm. Left internal carotid artery: Intracranial segment is patent with no significant stenosis. No aneurysm. Left middle cerebral artery: No occlusion or significant stenosis. No aneurysm. Left anterior cerebral artery: No occlusion or significant stenosis. No aneurysm. POSTERIOR CIRCULATION: Right vertebral artery: No occlusion or significant stenosis. No aneurysm. Left vertebral artery: No occlusion or significant stenosis. No aneurysm. Basilar artery: No occlusion or significant stenosis. No aneurysm. Right posterior cerebral artery: No occlusion or significant stenosis. No aneurysm. Left posterior cerebral artery: No occlusion or significant stenosis. No aneurysm. Brain: No definite mass, mass effect, or midline shift. Cerebral ventricles: No ventriculomegaly. Bones/joints: Unremarkable. No acute fracture. Soft tissues: Unremarkable. 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 ; Additional info: AMS, w/o contrast negative TECHNIQUE: Imaging protocol: Computed tomographic angiography of the neck with contrast. Exam focused on the cervical segments of the vasculature. 3D rendering (Not supervised by radiologist): MIP and/or 3D reconstructed images were created by the technologist. Radiation optimization: All CT scans at this facility use at least one of these dose optimization techniques: automated exposure control; mA and/or kV adjustment per patient size (includes targeted exams where dose is matched to clinical indication); or iterative reconstruction. Contrast material: OMNI 350; Contrast volume: 100 ml; Contrast route: INTRAVENOUS (IV); COMPARISON: CT angio headneck* [id number] 08/16/2023 2:43 PM RADIATION DOSE METRICS: Total DLP (mGy-cm): 395.92 FINDINGS: Right common carotid artery: No stenosis. No dissection or occlusion. Right internal carotid artery: No stenosis of the extracranial segment. No dissection or occlusion. Right external carotid artery: No occlusion or stenosis of the origin. Left common carotid artery: No stenosis. No dissection or occlusion. Left internal carotid artery: No stenosis of the extracranial segment. No dissection or occlusion. Left external carotid artery: No occlusion or stenosis of the origin. Right vertebral artery: No stenosis. No dissection or occlusion. Left vertebral artery: No stenosis. No dissection or occlusion. Soft tissues: Normal. No significant soft tissue swelling. Bones/joints: No acute fracture. CT/CT angio headne* [id number] IMPRESSION: 1. No large vessel stenosis or occlusion. 2. Interval resolution of right M2 occlusion. IMPRESSION: No stenosis or occlusion. REFERENCES: NASCET CRITERIA. The degree of stenosis in the cervical segment of the internal carotid artery is based on NASCET criteria. Normal is no stenosis. Mild is less than 50% stenosis. Moderate is 50-69% stenosis. Severe is 70% to 99% stenosis. Total occlusion is no detectable patent lumen.
[2023-09-15] MEDS: iohexol 350 mg/mL 500 mL Btl (per mL) IV (22:56)
[2023-09-15 23:59] LABS: Lactic Sepsis W/Reflex 1.5 mmol/L (0.5-2.2)
--- NOTE | 2023-09-16 00:03 | PC.NURSE ---
pt becoming irritable and agitated, attempting to get out of bed and pick at monitors and IV. notified leonid to obtain meds to calm patient.
[2023-09-16 00:08] VITALS: BP 151/55; PULSE 59; RESP 16; O2SAT 100
[2023-09-16] MEDS: cefdinir 300 MG CAPSULE PO (00:14)
[2023-09-16] MEDS: haloperidol inj 5 mg/mL INJ 1 mL IVP (00:14)
== END 2023-09-16 00:39 | disposition home or self-care (01) ==
PROVIDERS: Emergency Provider Physician Assistant; PCP Family Medicine
DX: N30.00 Acute cystitis without hematuria (principal); E03.9 Hypothyroidism, unspecified; Z86.73 Personal history of transient ischemic attack (TIA), and cerebral infarction without residual deficits; Z79.82 Long term (current) use of aspirin; I10 Essential (primary) hypertension
CPT/HCPCS: 36415; 70450; 70496; 70498; 71045; 74177; 80053; 81001; 83605; 83735; 84443; 85025; 85610; 85730; 87077; 87086; 87186; 93005; 96374; 99285; J1630; J7030; Q9967

== ENCOUNTER 2023-09-19 09:36 | Emergency (ER) | payer MEDICARE, OTHER, SELFPAY ==
[2023-09-19] VITALS (8 sets, daily range): BP systolic 136–161; BP diastolic 59–113; PULSE 51–108; RESP 16–18; TEMP 36.5; O2SAT 95–100
--- NOTE | 2023-09-19 09:56 | CT_ITS ---
WS: [id number] CT HEAD NONCONTRAST HISTORY: AMS TECHNIQUE: Contiguous axial imaging performed through the brain in 2.5 mm imaging. Bone and soft tiss ue windows. Sagittal and coronal reformats reviewed. All CT scans at [facility] use at least one of these dose optimization techniques: automated exposure control; mA and/or kV adjustment per pa tient size (includes targeted exams where dose is matched to clinical indication); or iterative recon struction. DLP: 2156.55 mGy.cm COMPARISON: 09/15/2023 No acute intracranial hemorrhage, midline shift or mass effect. Moderate atrophy and moderate small vessel ischemic disease. Large areas of subacute to remote infarc t are reidentified. LEFT temporal encephalomalacia is reidentified. Larger subacute infarct involving the RIGHT occipital and temporal lobe. These infarcts have not significantly changed. Ventricles: Normal size with no hydrocephalus. Paranasal sinuses: As visualized are clear. Mastoid air cells: Well pneumatized. Calvarium and scalp: Skull is intact with no soft tissue edema or swelling. CT/CT head wo con* [id number] IMPRESSION: 1. No acute intracranial hemorrhage or edema. 2. Bilateral large subacute to remote infarcts are reidentified. RIGHT occipit al temporal lobe infarct in the LEFT temporal lobe infarcts are unchanged witho ut progression. No new infarct.
--- NOTE | 2023-09-19 09:56 | XRR_ITS ---
PROCEDURE INFORMATION: Exam: XR Chest Exam date and time: 09/19/2023 10:01 AM Age: 82 years old Clinical indication: Other: AMS TECHNIQUE: Imaging protocol: Radiologic exam of the chest. Views: 1 view. COMPARISON: CR (CHEST, ) 09/15/2023 9:51 PM FINDINGS: Lungs: Unremarkable. No consolidation. Pleural spaces: Unremarkable. No pleural effusion. No pneumothorax. Heart/Mediastinum: Unremarkable. No cardiomegaly. Bones/joints: Unremarkable. XR/XR chest 1V [id number] IMPRESSION: No acute findings.
[2023-09-19 10:12] LABS: Eosinophils % 1.3 %; Hematocrit 38.3 % (36-47); Lymphocytes % 31.8 %; Mean Corpuscular HGB Conc 31.1 g/dL (30-55); Mean Corpuscular Hemoglobin 26.6 pg (27-33); Mean Corpuscular Volume 85.5 fl (85-98); Mean Platelet Volume 10.4 fL (7.4-10.4); Monocytes # 0.4 10^3/uL (0.2-0.9); Neutrophils # 1.64 10^3/uL (1.8-7.7); Neutrophils % 54.9 %; Nucleated Red Blood Cells % 0 %; Platelet Count 219 10^3/cmm (157-399); Red Blood Count 4.48 10^6/uL (3.85-5.65); Red Cell Distribution Width 15.4 % (12.1-15.1); White Blood Count 2.99 10^3/uL (3.29-11.43)
--- NOTE | 2023-09-19 10:21 | ED_ITS ---
Documented by User: LISSETH Dave 09/19/23 17:34 HPI - Altered Mental Status 2 General: Chief Complaint: Altered Mental Status Stated Complaint: ABD PAIN/AMS Time Seen by Provider: 09/19/23 09:49 Source: family and EMS Mode of arrival: EMS Limitations: altered mental status History of Present Illness: Patient is brought in by EMS for evaluation and treatment of acute worsening of mental status over the last several days. Initially, EMS had indicated no history of dementia but, when family arrived states that patient has been diagnosed with Alzheimer's or dementia in the past. They state that over the last several days however, patient's behaviors have become more extreme. They states she is not making sense when she speaks and appears to be hallucinating. She has become aggressive and combative-even using knives in the kitchen to potentially cause self-harm so, knives have been removed from the kitchen by family. They state patient is currently being treated for urinary tract infection with Pyridium and Omnicef. Patient apparently is having episodes of incontinence as she has orange stained urine noted on her legs upon arrival by EMS. Patient is not able to answer questions in the emergency department as her responses do not match the proper response to questioning. She is making verbal threats of harm to the staff and is trying to get out of the bed. Patient was seen here in the emergency department on 09/14 for same symptoms. However, patient was more sedated at that time with lethargy versus her agitation noted today. Patient at that time had head CT, CTA of the head and neck, and CT of the abdomen and pelvis which were all negative. She was treated for UTI during that visit. She was found to be bradycardic in the 40s and was treated with atropine. Patient is active medications are atenolol, levothyroxine and her UTI antibiotic. Nurse was able to speak by phone with a daughter or other female family member who primarily looks after the patient. It seems that the patient was put into [facility] here in town after her stroke a couple months ago. The believes the patient's mental decline was due to her being in the nursing facility and thought her confusion would improve if he took her home. However, patient realized once he got her home that care for her was very difficult and the family has been trying to find placement for her. They indicated they had been in contact with [facility] in [place] but the patient needed an evaluation before being able to be considered for a geriatric psychiatry placement to then be placed at [facility] in [facility]. Review of Systems 2 General: Reports: ROS unobtainable due to mental status PFSH ED 2 PFSH: Medical History CVA (cerebral vascular accident) Chronic back pain Hypertension Urticaria Hypothyroid Physical Exam 2 Const: OTHER: Patient is agitated. She is only oriented to person at this time. HENMT: COMMON NORMALS: normocephalic, atraumatic, hearing grossly normal bilaterally and Normal external nose present HEAD & SCALP: normocephalic and atraumatic NOSE: Normal external nose present OTHER: Examination is extremely difficult due to patient's agitation and fighting. Visual examination of patient's head as noted. Eye: COMMON NORMALS: conjunctivae normal CONJUNCTIVA: Yes conjunctivae normal Neck/C-Spine: COMMON NORMALS: full ROM and no meningeal signs Resp: COMMON NORMALS: normal respiratory effort, No retractions and No use of accessory muscles Cardio: OTHER: Patient will not sit still and pushes away the stethoscope while trying to auscultate heart sounds. GI: OTHER: Soft on palpation but does not tolerate further examination. Back/Pelvis: COMMON NORMALS: thoraco-lumbar ROM normal OTHER: Patient is moving around in the bed indicating ability to sit upright from a reclined position and attempt to get out of the bed. Extremity: COMMON NORMALS: full ROM GENERAL: Yes normal exam except as noted OTHER: Patient is using arms and legs to push away and kick. She is attempting to get out of bed and shows no signs of any difficulty with her extremities. Difficult to examine closely for any signs of joint redness, swelling, or tenderness. Neuro: COMMON NORMALS: moves all extremities MENINGEAL SIGNS: Yes no meningeal signs Course 2 Vital Signs: Vital signs: Vital Signs Temperature 97.7 F 09/19/23 09:46 Pulse Rate 58 L 09/19/23 18:17 Respiratory Rate 16 09/19/23 18:17 Blood Pressure 161/73 09/19/23 18:17 Pulse Oximetry 96 09/19/23 18:17 Oxygen Delivery Me thod Room Air 09/19/23 18:17 MDM - Altered Mental Status Medical Decision Making Patient presented via EMS for complaints of altered mental status. Patient is obviously altered and appears to be hallucinating. She is very agitated and physically violent. She is threatening physical violence to staff members verbally as well. I spoke to Dr. Rodrigues who recommended 2.5 of Zyprexa. However, it was ordered orally and nurse indicated concerns about having patient attempt an oral medication. We then provided it IM. Patient seemed to have good response after a while. Once family arrives, they do provide insight as to the patient's diagnosis of dementia or Alzheimer's with increased agitation and violence now for couple weeks. It appears the family is trying to get the patient placed in geriatric psych so she can be sent to a specific nursing facility in [facility]. The said that the patient has already been accepted to [facility] in [place]. The nurse reached out to [facility] who indicated that was not the case. The charge nurse told me that they did have beds available but patient would still need to go through the proper protocols. They requested patient's lab work, EKG, and the 's POA paperwork to then be considered for admission through their facility. All of the requested information was faxed over to the facility for review by other psychiatrist. Multiple times I have gone to the room to try and update the patient's family however, the family-mostly the , has been removed from the room as he seems to be instigating the patient to further agitation. Nursing states that having him in the room has been a problem and have asked him to step out. [facility] has called back requesting the patient's DNR status and to discuss the EKG. Explained that Dr. Rodrigues has already looked over the various EKGs and is not having any acute concerns on them. Patient is not able to be hooked up to monitor she is not tolerating the wires and electrodes during her stay. However, we did not run troponins on this patient. Patient had an initial baseline 21 and a 2-hour of 19. He states that since these are so specific, he is not worried about these changes. Patient has a living will indicating she does not have a desire to have any invasive measures which would prolong imminent . The paperwork here in the emergency department regarding DNR has some noninvasive measures so I did go through with the patient's . He did indicate the patient could have Ambu bagging and admission to an ICU floor if needed. This paperwork was signed by the patient, myself, and Dr. Kitchen. It will be faxed on to [facility] at this time. Currently, we are still waiting to hear back from [facility] as to whether or not the patient will be admitted to the geriatric psychiatry service. Transfer of care to Dr Kitchen at 1700. Lab Data 09/19/23 09:50 09/19/23 09:50 Radiology Impressions Chest X-Ray 09/19/23 09:56 IMPRESSION: No acute findings. Head CT 09/19/23 09:56 IMPRESSION: 1. No acute intracranial hemorrhage or edema. 2. Bilateral large subacute to remote infarcts are reidentified. RIGHT occipital temporal lobe infarct in the LEFT temporal lobe infarcts are unchanged without progression. No new infarct. Laboratory Results WBC 2.99 10^3/uL (3.29-11.43) L 09/19/23 09:50 RBC 4.48 10^6/uL (3.85-5.65) 09/19/23 09:50 Hgb 11.90 g/dL (11.27-16.99) 09/19/23 09:50 Hct 38.3 % (36-47) 09/19/23 09:50 MCV 85.5 fl (85-98) 09/19/23 09:50 MCH 26.6 pg (27-33) L 09/19/23 09:50 MCHC 31.1 g/dL (30-55) 09/19/23 09:50 RDW 15.4 % (12.1-15.1) H 09/19/23 09:50 Plt Count 219 10^3/cmm (157-399) 09/19/23 09:50 MPV 10.4 fL (7.4-10.4) 09/19/23 09:50 Neut % (Auto) 54.9 % 09/19/23 09:50 Lymph % (Auto) 31.8 % 09/19/23 09:50 [place] % (Auto) 12.0 % 09/19/23 09:50 Eos % (Auto) 1.3 % 09/19/23 09:50 Baso % (Auto) 0.0 % 09/19/23 09:50 Neut # (Auto) 1.64 10^3/uL (1.8-7.7) L 09/19/23 09:50 Lymph # (Auto) 1.0 10^3/uL (0.8-4.8) 09/19/23 09:50 [place] # (Auto) 0.4 10^3/uL (0.2-0.9) 09/19/23 09:50 Eos # (Auto) 0.0 10^3/uL (0.0-0.8) 09/19/23 09:50 Baso # (Auto) 0.0 10^3/uL (0.0-0.1) 09/19/23 09:50 Nucleated RBC % (auto) 0 % 09/19/23 09:50 Nucleated RBCs # 0.0 /100WBC 09/19/23 09:50 Sodium 139 mmol/L (136-145) 09/19/23 09:50 Potassium 4.3 mmol/L (3.5-5.1) 09/19/23 09:50 Chloride 104 mmol/L (98-107) 09/19/23 09:50 Carbon Dioxide 23 mmol/L (22-29) 09/19/23 09:50 Anion Gap 16.3 (5-19) 09/19/23 09:50 BUN 7 mg/dL (8-23) L 09/19/23 09:50 Creatinine 0.7 mg/dL (0.5-0.9) 09/19/23 09:50 GFR Calculation Not Reportable 09/19/23 09:50 Glucose 87 mg/dL (65-115) 09/19/23 09:50 Calculated Osmolality 285 mOsm/kg (285-295) 09/19/23 09:50 Lactic Acid 1.4 mmol/L (0.5-2.2) 09/19/23 09:50 Calcium 9.0 mg/dL (8.5-10.5) 09/19/23 09:50 Total Bilirubin 0.3 mg/dL (0.15-1.2) 09/19/23 09:50 AST 26 U/L (0-32) 09/19/23 09:50 ALT 11 U/L (0-33) 09/19/23 09:50 Alkaline Phosphatase 126 U/L (35-105) H 09/19/23 09:50 Troponin T Baseline 21 ng/L (0-10) H 09/19/23 09:50 Troponin T 120 Minute 19.33 ng/L (0-10) H 09/19/23 12:01 Delta Troponin T -1.67 ABS# (0-10) L 09/19/23 12:01 Total Protein 6.9 g/dL (6.6-8.7) 09/19/23 09:50 Albumin 4.2 g/dL (3.5-5.2) 09/19/23 09:50 Globulin 2.7 g/dL (1.3-4.6) 09/19/23 09:50 Procalcitonin 0.05 ng/mL (0-0.5) 09/19/23 09:50 Urine Color [place] (Yellow) A 09/19/23 10:09 Urine Appearance Cloudy (CLEAR) A 09/19/23 10:09 Urine pH 6 (5-7) 09/19/23 10:09 Ur Specific [place] 1.015 (1.005-1.030) 09/19/23 10:09 Urine Protein 1+ (Negative) H 09/19/23 10:09 Urine Glucose (UA) Norm (Normal) 09/19/23 10:09 Urine Ketones Negative (Negative) 09/19/23 10:09 Urine Blood Neg (Negative) 09/19/23 10:09 Urine Nitrate Not tested (Negative) A 09/19/23 10:09 Urine Bilirubin 2+ (Negative) H 09/19/23 10:09 Urine Urobilinogen 4 mg/dL (Negative) H 09/19/23 10:09 Ur Leukocyte Esterase Negative (Negative) 09/19/23 10:09 Urine RBC 0-4 /hpf (0-2) H 09/19/23 10:09 Urine WBC 0-4 /hpf (0-5) H 09/19/23 10:09 Ur Squamous Epith Cells 0-4 /hpf (0-5) H 09/19/23 10:09 Amorphous Sediment Not Reportable 09/19/23 10:09 Urine Bacteria Trace /hpf (NONE) 09/19/23 10:09 Hyaline Casts 0-4 /lpf H 09/19/23 10:09 Urine Mucus Trace /hpf 09/19/23 10:09 Urine Opiates Screen Negative ng/mL (Negative) 09/19/23 10:09 Ur Barbiturates Screen Negative ng/mL (Negative) 09/19/23 10:09 Ur Phencyclidine Scrn Negative ng/mL (Negative) 09/19/23 10:09 Ur Amphetamines Screen Negative ng/mL (Negative) 09/19/23 10:09 U Benzodiazepines Scrn Negative ng/mL (Negative) 09/19/23 10:09 Urine Cocaine Screen Negative ng/mL (Negative) 09/19/23 10:09 U Marijuana (THC) Screen Negative ng/mL (Negative) 09/19/23 10:09 All radiology interpretation(s) finalized by discharge Discharge Plan Discharge Condition: Stable Prescriptions: No Action alprazolam 0.5 mg tablet 0.5 mg PO TID atorvastatin 40 mg tablet 40 mg PO DAILY lisinopril 10 mg tablet 10 mg PO DAILY potassium bicarb-citric acid 20 mEq tablet, effervescent 20 meq PO DAILY sertraline 50 mg tablet 50 mg PO DAILY epinephrine [EpiPen 2-Pb] 0.3 mg/0.3 mL auto-injector 0.3 mg IM Q4H PRN (Reason: anaphylaxis) Qty: 2 1RF cefdinir 300 mg capsule 300 mg PO BID 10 Days Qty: 20 0RF polyethylene glycol 3350 [Miralax] 17 gram/dose powder 4 g PO DAILY Qty: 119 0RF phenazopyridine 200 mg tablet 200 mg PO TID PRN (Reason: Pain) atenolol 25 mg tablet 25 mg PO DAILY Xolair 150 mg/mL syringe 300 mg SUBCUT .EVERY 4 WEEKS levothyroxine 75 mcg tablet 75 mcg PO DAILY cholecalciferol (vitamin D3) [Vitamin D3] 25 mcg (1,000 unit) Capsule 25 mcg PO DAILY aspirin [Adult Aspirin Regimen] 81 mg tablet,delayed release (DR/EC) 162 mg PO DAILY Referrals: Naresh Gallego MD [Primary Care Provider] - Patient Instructions: Altered Mental Status (ED) Coding Level of Care Code ED Commercial Lines Manager for Chg Fwd Documented by User: Summer Kitchen MD 09/19/23 18:28 HPI - Altered Mental Status 2 General: Chief Complaint: Altered Mental Status Stated Complaint: ABD PAIN/AMS Time Seen by Provider: 09/19/23 09:49 [facility] ED 2 PFSH: Medical History CVA (cerebral vascular accident) Chronic back pain Hypertension Urticaria Hypothyroid Course 2 Vital Signs: Vital signs: Vital Signs Temperature 97.7 F 09/19/23 09:46 Pulse Rate 58 L 09/19/23 18:17 Respiratory Rate 16 09/19/23 18:17 Blood Pressure 161/73 09/19/23 18:17 Pulse Oximetry 96 09/19/23 18:17 Oxygen Delivery Me thod Room Air 09/19/23 18:17 MDM - Altered Mental Status Medical Decision Making Patient presented via EMS for complaints of altered mental status. Patient is obviously altered and appears to be hallucinating. She is very agitated and physically violent. She is threatening physical violence to staff members verbally as well. I spoke to Dr. Rodrigues who recommended 2.5 of Zyprexa. However, it was ordered orally and nurse indicated concerns about having patient attempt an oral medication. We then provided it IM. Patient seemed to have good response after a while. Once family arrives, they do provide insight as to the patient's diagnosis of dementia or Alzheimer's with increased agitation and violence now for couple weeks. It appears the family is trying to get the patient placed in geriatric psych so she can be sent to a specific nursing facility in [facility]. The said that the patient has already been accepted to [facility] in [place]. The nurse reached out to [facility] who indicated that was not the case. The charge nurse told me that they did have beds available but patient would still need to go through the proper protocols. They requested patient's lab work, EKG, and the 's POA paperwork to then be considered for admission through their facility. All of the requested information was faxed over to the facility for review by other psychiatrist. Multiple times I have gone to the room to try and update the patient's family however, the family-mostly the , has been removed from the room as he seems to be instigating the patient to further agitation. Nursing states that having him in the room has been a problem and have asked him to step out. [facility] has called back requesting the patient's DNR status and to discuss the EKG. Explained that Dr. Rodrigues has already looked over the various EKGs and is not having any acute concerns on them. Patient is not able to be hooked up to monitor she is not tolerating the wires and electrodes during her stay. However, we did not run troponins on this patient. Patient had an initial baseline 21 and a 2-hour of 19. He states that since these are so specific, he is not worried about these changes. Patient has a living will indicating she does not have a desire to have any invasive measures which would prolong imminent . The paperwork here in the emergency department regarding DNR has some noninvasive measures so I did go through with the patient's . He did indicate the patient could have Ambu bagging and admission to an ICU floor if needed. This paperwork was signed by the patient, myself, and Dr. Kitchen. It will be faxed on to [facility] at this time. Currently, we are still waiting to hear back from [facility] as to whether or not the patient will be admitted to the geriatric psychiatry service. Transfer of care to Dr Kitchen at 1700. I spoke directly with Dr. Ti Brian who is the medical psychotherapist for the floor. We discussed that the patient has had difficult to monitor vital signs but she has remained fairly stable. She was slightly tachycardic when she was agitated and her heart rate does drop down in the 50s at times. But she is maintaining a good blood pressure. I have reviewed all of her workup. Urinary tract infection seems resolved. Her BUN and creatinine are appropriate. No leukocytosis. Patient has been accepted to the geriatric behavioral health unit at [facility]. Lab Data 09/19/23 09:50 09/19/23 09:50 Radiology Impressions Chest X-Ray 09/19/23 09:56 IMPRESSION: No acute findings. Head CT 09/19/23 09:56 IMPRESSION: 1. No acute intracranial hemorrhage or edema. 2. Bilateral large subacute to remote infarcts are reidentified. RIGHT occipital temporal lobe infarct in the LEFT temporal lobe infarcts are unchanged without progression. No new infarct. Laboratory Results WBC 2.99 10^3/uL (3.29-11.43) L 09/19/23 09:50 RBC 4.48 10^6/uL (3.85-5.65) 09/19/23 09:50 Hgb 11.90 g/dL (11.27-16.99) 09/19/23 09:50 Hct 38.3 % (36-47) 09/19/23 09:50 MCV 85.5 fl (85-98) 09/19/23 09:50 MCH 26.6 pg (27-33) L 09/19/23 09:50 MCHC 31.1 g/dL (30-55) 09/19/23 09:50 RDW 15.4 % (12.1-15.1) H 09/19/23 09:50 Plt Count 219 10^3/cmm (157-399) 09/19/23 09:50 MPV 10.4 fL (7.4-10.4) 09/19/23 09:50 Neut % (Auto) 54.9 % 09/19/23 09:50 Lymph % (Auto) 31.8 % 09/19/23 09:50 [place] % (Auto) 12.0 % 09/19/23 09:50 Eos % (Auto) 1.3 % 09/19/23 09:50 Baso % (Auto) 0.0 % 09/19/23 09:50 Neut # (Auto) 1.64 10^3/uL (1.8-7.7) L 09/19/23 09:50 Lymph # (Auto) 1.0 10^3/uL (0.8-4.8) 09/19/23 09:50 [place] # (Auto) 0.4 10^3/uL (0.2-0.9) 09/19/23 09:50 Eos # (Auto) 0.0 10^3/uL (0.0-0.8) 09/19/23 09:50 Baso # (Auto) 0.0 10^3/uL (0.0-0.1) 09/19/23 09:50 Nucleated RBC % (auto) 0 % 09/19/23 09:50 Nucleated RBCs # 0.0 /100WBC 09/19/23 09:50 Sodium 139 mmol/L (136-145) 09/19/23 09:50 Potassium 4.3 mmol/L (3.5-5.1) 09/19/23 09:50 Chloride 104 mmol/L (98-107) 09/19/23 09:50 Carbon Dioxide 23 mmol/L (22-29) 09/19/23 09:50 Anion Gap 16.3 (5-19) 09/19/23 09:50 BUN 7 mg/dL (8-23) L 09/19/23 09:50 Creatinine 0.7 mg/dL (0.5-0.9) 09/19/23 09:50 GFR Calculation Not Reportable 09/19/23 09:50 Glucose 87 mg/dL (65-115) 09/19/23 09:50 Calculated Osmolality 285 mOsm/kg (285-295) 09/19/23 09:50 Lactic Acid 1.4 mmol/L (0.5-2.2) 09/19/23 09:50 Calcium 9.0 mg/dL (8.5-10.5) 09/19/23 09:50 Total Bilirubin 0.3 mg/dL (0.15-1.2) 09/19/23 09:50 AST 26 U/L (0-32) 09/19/23 09:50 ALT 11 U/L (0-33) 09/19/23 09:50 Alkaline Phosphatase 126 U/L (35-105) H 09/19/23 09:50 Troponin T Baseline 21 ng/L (0-10) H 09/19/23 09:50 Troponin T 120 Minute 19.33 ng/L (0-10) H 09/19/23 12:01 Delta Troponin T -1.67 ABS# (0-10) L 09/19/23 12:01 Total Protein 6.9 g/dL (6.6-8.7) 09/19/23 09:50 Albumin 4.2 g/dL (3.5-5.2) 09/19/23 09:50 Globulin 2.7 g/dL (1.3-4.6) 09/19/23 09:50 Procalcitonin 0.05 ng/mL (0-0.5) 09/19/23 09:50 Urine Color [place] (Yellow) A 09/19/23 10:09 Urine Appearance Cloudy (CLEAR) A 09/19/23 10:09 Urine pH 6 (5-7) 09/19/23 10:09 Ur Specific [place] 1.015 (1.005-1.030) 09/19/23 10:09 Urine Protein 1+ (Negative) H 09/19/23 10:09 Urine Glucose (UA) Norm (Normal) 09/19/23 10:09 Urine Ketones Negative (Negative) 09/19/23 10:09 Urine Blood Neg (Negative) 09/19/23 10:09 Urine Nitrate Not tested (Negative) A 09/19/23 10:09 Urine Bilirubin 2+ (Negative) H 09/19/23 10:09 Urine Urobilinogen 4 mg/dL (Negative) H 09/19/23 10:09 Ur Leukocyte Esterase Negative (Negative) 09/19/23 10:09 Urine RBC 0-4 /hpf (0-2) H 09/19/23 10:09 Urine WBC 0-4 /hpf (0-5) H 09/19/23 10:09 Ur Squamous Epith Cells 0-4 /hpf (0-5) H 09/19/23 10:09 Amorphous Sediment Not Reportable 09/19/23 10:09 Urine Bacteria Trace /hpf (NONE) 09/19/23 10:09 Hyaline Casts 0-4 /lpf H 09/19/23 10:09 Urine Mucus Trace /hpf 09/19/23 10:09 Urine Opiates Screen Negative ng/mL (Negative) 09/19/23 10:09 Ur Barbiturates Screen Negative ng/mL (Negative) 09/19/23 10:09 Ur Phencyclidine Scrn Negative ng/mL (Negative) 09/19/23 10:09 Ur Amphetamines Screen Negative ng/mL (Negative) 09/19/23 10:09 U Benzodiazepines Scrn Negative ng/mL (Negative) 09/19/23 10:09 Urine Cocaine Screen Negative ng/mL (Negative) 09/19/23 10:09 U Marijuana (THC) Screen Negative ng/mL (Negative) 09/19/23 10:09 Discharge Plan Discharge Condition: Stable Prescriptions: No Action alprazolam 0.5 mg tablet 0.5 mg PO TID atorvastatin 40 mg tablet 40 mg PO DAILY lisinopril 10 mg tablet 10 mg PO DAILY potassium bicarb-citric acid 20 mEq tablet, effervescent 20 meq PO DAILY sertraline 50 mg tablet 50 mg PO DAILY epinephrine [EpiPen 2-Pb] 0.3 mg/0.3 mL auto-injector 0.3 mg IM Q4H PRN (Reason: anaphylaxis) Qty: 2 1RF cefdinir 300 mg capsule 300 mg PO BID 10 Days Qty: 20 0RF polyethylene glycol 3350 [Miralax] 17 gram/dose powder 4 g PO DAILY Qty: 119 0RF phenazopyridine 200 mg tablet 200 mg PO TID PRN (Reason: Pain) atenolol 25 mg tablet 25 mg PO DAILY Xolair 150 mg/mL syringe 300 mg SUBCUT .EVERY 4 WEEKS levothyroxine 75 mcg tablet 75 mcg PO DAILY cholecalciferol (vitamin D3) [Vitamin D3] 25 mcg (1,000 unit) Capsule 25 mcg PO DAILY aspirin [Adult Aspirin Regimen] 81 mg tablet,delayed release (DR/EC) 162 mg PO DAILY Referrals: Naresh Gallego MD [Primary Care Provider] - Patient Instructions: Altered Mental Status (ED) Coding Level of Care Code ED Commercial Lines Manager for Cornel Wei
[2023-09-19 10:28] LABS: Lactic Sepsis W/Reflex 1.4 mmol/L (0.5-2.2)
[2023-09-19 10:29] LABS: Troponin(5th) Baseline 21 ng/L (0-10)
[2023-09-19 10:30] LABS: Alanine Aminotransferase 11 U/L (0-33); Albumin Level 4.2 g/dL (3.5-5.2); Alkaline Phosphatase 126 U/L (35-105); Aspartate Amino Transferase 26 U/L (0-32); Blood Urea Nitrogen 7 mg/dL (8-23); Carbon Dioxide 23 mmol/L (22-29); Chloride 104 mmol/L (98-107); Creatinine Clr Calc Pharmacy 40.5463; Globulin 2.7 g/dL (1.3-4.6); Glucose 87 mg/dL (65-115); Osmolality Calculated 285 mOsm/kg (285-295); Sodium 139 mmol/L (136-145); Total Bilirubin 0.3 mg/dL (0.15-1.2); Total Protein 6.9 g/dL (6.6-8.7)
[2023-09-19] MEDS: OLANZapine 10 mg VIAL 2.5 MG IM (10:33)
[2023-09-19 10:37] LABS: Anion Gap 16.3 (5-19); Potassium 4.3 mmol/L (3.5-5.1); Procalcitonin 0.05 ng/mL (0-0.5)
[2023-09-19 11:01] LABS: Blood Urine Neg (Negative); Glucose Urine UA Norm (Normal); Ketones Urine Negative (Negative); Nitrate Urine Not Tested (Negative); Protein Urine 1+ (Negative); Specific Gravity, Urine 1.015 (1.005-1.030); Urine Appearance Cloudy (CLEAR); Urine Color Orange (Yellow); pH Urine 6 (5-7)
[2023-09-19 11:02] LABS: Add Urine Microscopic? YES; Bilirubin Urine 2+ (Negative); Leukocyte Esterase Urine Negative (Negative); Urobilinogen Urine 4 mg/dL (Negative)
[2023-09-19 11:03] LABS: Add Urine Culture? No; Bacteria Urine TRACE /hpf; Hyaline Casts Urine 0-4 /lpf; Mucus Urine TRACE /hpf; RBC Urine 0-4 /hpf (0-2); Squamous Epithelial Cell Urine 0-4 /hpf (0-5); WBC Urine 0-4 /hpf (0-5)
--- NOTE | 2023-09-19 11:09 | PC.NURSE ---
PT WILL NOT KEEP O2, BLOOD PRESSURE CUFF, OR INSERTER ON. PT IS CONFUSED AND WILL NOT STAY IN BED. FAMILY AT BEDSIDE TO HELP.
--- NOTE | 2023-09-19 11:58 | ECG_ITS ---
[facility] Test Date: 2023-09-19 Pat Name: Tamera Valdovinos Department: Room: Gender: Female Boiler Inspector: : 1940 Requested By: Gretchen Lucia Order Number: [id number] José Manuel MD: Mundo Paez M.D. Measurements Intervals [place] Rate: 114 P: 0 MT: 0 QRS: 87 QRSD: 81 T: -69 QT: 325 QTc: 448 Interpretive Statements ATRIAL FIBRILLATION WITH RAPID VENTRICULAR RESPONSE ST DEVIATION AND MODERATE T-WAVE ABNORMALITY, CONSIDER ANTEROLATERAL ISCHEMIA [-0.1+ mV T-WAVE IN V3-V6] ST DEVIATION AND MODERATE T-WAVE ABNORMALITY, CONSIDER INFERIOR ISCHEMIA [-0.1+ mV T-WAVE IN II/aVF] Compared to ECG 09/15/2023 21:37:44 T-wave abnormality now present Possible ischemia now present Sinus rhythm no longer present Electronically Signed On 09-20-2023 0:31:02 CDT by Mundo Paez M.D. [id number]
--- NOTE | 2023-09-19 12:04 | PC.PHAR ---
SPOUSE HAS SEVERAL RX BOTTLES WITH NEW MEDICATIONS THAT PT HAS NOT TAKEN TODAY. SPOUSE STATES PT HAS BEEN TAKING 2 ASA 81MG DAILY. MEDICATIONS FROM 09/14/23 ON EXTERNAL MED LIST ARE MEDS SPOUSE IS UNAWARE OF. LEFT ON MED LIST WITH FILL DATES.
--- NOTE | 2023-09-19 12:24 | ECG_ITS ---
[facility] Test Date: 2023-09-19 Pat Name: Tamera Valdovinos Department: Room: Gender: Female Back Closer: : 1940 Requested By: Gretchen Lucia Order Number: [id number] José Manuel MD: Mundo Paez M.D. Measurements Intervals [place] Rate: 105 P: 0 NH: 0 QRS: 143 QRSD: 77 T: 0 QT: 363 QTc: 481 Interpretive Statements ATRIAL FIBRILLATION WITH RAPID VENTRICULAR RESPONSE POSSIBLE RIGHT VENTRICULAR HYPERTROPHY [SOME/ALL OF: PROMINENT R IN V1, LATE TRANSITION, RAD, DEDRA, SSS] NONSPECIFIC ST & T-WAVE ABNORMALITY Compared to ECG 09/19/2023 11:29:11 Atrial abnormality now present Possible ischemia no longer present T-wave abnormality still present Electronically Signed On 09-20-2023 0:23:34 CDT by Mundo Paez M.D. [id number]
[2023-09-19 12:30] LABS: Troponin 5 2HR 19.33 ng/L (0-10)
[2023-09-19 13:00] LABS: Amphetamines Screen Urine Negative (Negative); Barbiturates Screen Urine Negative (Negative); Benzodiazepines Screen Urine Negative (Negative); Cocaine Screen Urine Negative (Negative); Opiate Screen Urine Negative (Negative); PCP Screen Urine Negative (Negative); THC Screen Urine Negative (Negative)
[2023-09-19 13:08] LABS: Troponin 5 2HR Delta -1.67 ABS# (0-10)
--- NOTE | 2023-09-19 15:58 | ECG_ITS ---
[facility] Test Date: 2023-09-19 Pat Name: Tamera Valdovinos Department: Room: Gender: Female Vacuum Cleaner Repairer: : 1940 Requested By: Gretchen Lucia Order Number: [id number] Reading MD: Mundo Paez M.D. Measurements Intervals [place] Rate: 48 P: 159 SD: 170 QRS: 137 QRSD: 86 T: 143 QT: 491 QTc: 442 Interpretive Statements SINUS BRADYCARDIA ARM LEADS REVERSED [INVERTED P AND QRS IN I] Compared to ECG 09/19/2023 12:24:47 Atrial fibrillation no longer present Atrial abnormality no longer present T-wave abnormality no longer present Electronically Signed On 09-20-2023 0:34:13 CDT by Mundo Paez M.D. [id number]
--- NOTE | 2023-09-19 16:00 | PC.NURSE ---
WAS MAKING SITUATION WORSE, WAS ASKED TO WAIT IN THE WAITING ROOM.
--- NOTE | 2023-09-19 16:01 | PC.NURSE ---
NURSE PUT PT BACK IN BED, PT ATE CHICKEN. PT WATCHING TV AND RESTING IN BED.
--- NOTE | 2023-09-19 23:26 | PC.NURSE ---
report/ pt update this nurse spoke to pt for tx. he left pt meds and blanket for pt. to call him when pt leaves and he will call [facility] tomorrow. reprt called to [facility] val[facility] had no further questions at this time.
--- NOTE | 2023-09-19 23:38 | PC.NURSE ---
pt / silvestre contacted upon transfer @[phone]
[2023-09-19] MEDS: OLANZapine 10 mg VIAL 5 MG IM (23:56)
--- NOTE | 2023-09-19 23:58 | PC.NURSE ---
pt tx pt was not happy with transport team, rq meds for travel. meds given without incident.
== END 2023-09-19 23:59 ==
PROVIDERS: Physician Assistant; Emergency Provider Emergency Medicine; PCP Family Medicine
DX: R10.9 Unspecified abdominal pain (principal); R41.82 Altered mental status, unspecified
CPT/HCPCS: 36415; 70450; 71045; 80053; 80306; 81001; 83605; 84145; 84484; 85025; 87040; 87086; 93005; 96372; 99285; J3490